=== PATIENT | female | born 1975 | race Caucasian/White ===

== ENCOUNTER 2016-06-14 08:42 | Emergency (ER) | payer BC ==
[2016-06-14] MEDS ORDERED: Ondansetron 4 MG/2 ML SDV IVPUSH ONE (08:59)
[2016-06-14] MEDS ORDERED: Sodium Chloride 0.9% 10 ML Syringe FLUSH PRN (08:59)
[2016-06-14] MEDS ORDERED: HYDROmorphone 2 MG/ML Syringe IVPUSH ONE (08:59)
[2016-06-14] MEDS ORDERED: Sodium Chloride 0.9% 2.5 ML Syringe FLUSH PRN (08:59)
[2016-06-14] MEDS ORDERED: Sodium Chloride 0.9% 1,000 ML IV ONE (08:59)
--- NOTE | 2016-06-14 09:02 | EDM.PDOC ---
ED HPI GENERAL MEDICAL PROBLEM - General Chief Complaint: Flank Pain Stated Complaint: BACK PAIN Time Seen by Provider: 06/14/16 08:58 - History of Present Illness INITIAL COMMENTS - FREE TEXT/NARRATIVE: HISTORY AND PHYSICAL: History of present illness: The patient is a 40-year-old female with a history of chronic right hip and lower back pain, partial hysterectomy, cholecystectomy and palpitations who presents with sudden onset of right flank pain that started about one hour ago. The patient states she was having a completely normal morning and had a completely normal day yesterday when the pain started suddenly at her right flank. Patient has chronic right hip and lower back pain but this is very different as it is much higher and much more intense. She has had no frequency urgency or dysuria no hematuria. She has nausea with the pain the pain is not radiating. She is no right lower abdominal pain or right upper abdominal pain. She's had no recent fever chills cough shortness of breath. Patient took ibuprofen prior to coming here for the pain. She has not actually vomited but she does feel extremely nauseated. The patient admits that she drinks mostly caffeinated products on a regular basis but does try to drink some water. She describes the pain as very deep and intense. Review of systems: As per history of present illness and below otherwise all systems reviewed and negative. Past medical history: As per history of present illness and as reviewed below otherwise noncontributory. Surgical history: As per history of present illness and as reviewed below otherwise noncontributory. Social history: No reported history of drug or alcohol abuse. Family history: As per history of present illness and as reviewed below otherwise noncontributory. Physical exam: General: Well-developed well-nourished female who looks very uncomfortable in the room but vital signs of been reviewed by me HEENT: Atraumatic, normocephalic, negative for conjunctival pallor or scleral icterus, mucous membranes moist, throat clear, neck supple, nontender, trachea midline. Lungs: Clear to auscultation, breath sounds equal bilaterally, chest nontender. Heart: S1S2, regular, negative for clicks, rubs, or JVD. Abdomen: Soft, nondistended, nontender. I am unable to reproduce the pain on palpation and bowel sounds are normoactive Negative for masses or hepatosplenomegaly. Negative for costovertebral tenderness. Pelvis: Stable nontender. Genitourinary: Deferred. Rectal: Deferred. Extremities: Atraumatic, negative for cords or calf pain. Neurovascular unremarkable. Neuro: Awake, alert, oriented. Cranial nerves II through XII unremarkable. Cerebellum unremarkable. Motor and sensory unremarkable throughout. Exam nonfocal. Back: And unable to reproduce the pain on palpation and there are no midline step-offs or defects the thoracic or lumbar spine Diagnostics: CBC CMP UA urine culture CT scan of the abdomen and pelvis Therapeutics: IV fluids Dilaudid Zofran All testing was discussed with the patient and sister at bedside and she is currently without any pain nausea or any issues. She is aware she likely passed the stone already so I will give her any pain medication nausea medication of Flomax for home. Advised followup with urology and reasons to return to the ER. I've also advised cutting back on caffeine use and pushing hydration Impression: Right flank pain, recently passed right ureteral stone stable Definitive disposition and diagnosis as appropriate pending reevaluation and review of above. Right Flank Pain Score (Numeric/FACES): 9 - Related Data Allergies Allergy/AdvReac Type Severity Reaction Status Date / Time codeine Allergy Nausea and Verified 04/03/14 19:39 Vomiting Home Meds: Home Meds Metoprolol Succinate [Toprol XL 50mg] 50 mg PO BEDTIME 10/05/13 [History] Sertraline HCl 100 mg PO DAILY 10/05/13 [History] Past Medical History Cardiovascular History: Reports: Other (see below) Other Cardiovascular History: pvc Social & Family History - Tobacco Use Smoking Status *Q: Never Smoker Second Hand Smoke Exposure: No - Caffeine Use Caffeine Use: Reports: Coffee, Tea - Alcohol Use Days Per Week of Alcohol Use: 0 Number of Drinks Per Day: 0 Total Drinks Per Week: 0 - Recreational Drug Use Recreational Drug Use: No Drug Use in Last 12 Months: No ED ROS GENERAL - Review of Systems Review Of Systems: ROS reveals no pertinent complaints other than HPI. ED EXAM, GENERAL - Physical Exam Exam: See Below (See dictation) Course - Vital Signs Last Recorded V/S: Last Vital Signs Temp 36.3 C 06/14/16 08:52 Pulse 89 06/14/16 08:52 Resp 20 06/14/16 08:52 BP 137/86 06/14/16 08:52 Pulse Ox 98 06/14/16 08:52 - Orders/Labs/Meds Orders: Active Orders 24 hr Category Date Time Status CULTURE URINE [RM] Stat Lab 06/14/16 08:55 Received Sodium Chloride 0.9% [Saline Flush] Med 06/14/16 08:59 Active 10 ml FLUSH ASDIRECTED PRN Sodium Chloride 0.9% [Saline Flush] Med 06/14/16 08:59 Active 2.5 ml FLUSH ASDIRECTED PRN Saline Lock Insert [OM.PC] Stat Oth 06/14/16 08:58 Ordered Medication Orders Sodium Chloride (Saline Flush) 10 ml FLUSH ASDIRECTED PRN PRN Reason: Keep Vein Open Last Admin: 06/14/16 09:06 Dose: 10 ml Sodium Chloride (Saline Flush) 2.5 ml FLUSH ASDIRECTED PRN PRN Reason: Keep Vein Open Last Admin: 06/14/16 09:06 Dose: 2.5 ml Labs: Laboratory Tests 06/14/16 06/14/16 06/14/16 Range/Units 08:55 08:55 08:55 WBC 8.59 (4.0-11.0) K/uL RBC 4.96 (4.30-5.90) M/uL Hgb 14.6 (12.0-16.0) g/dL Hct 43.7 (36.0-46.0) % MCV 88.1 (80.0-98.0) fL MCH 29.4 (27.0-32.0) pg MCHC 33.4 (31.0-37.0) g/dL RDW Std Deviation 41.5 (28.0-62.0) fl RDW Coeff of Cynthia 13 (11.0-15.0) % Plt Count 355 (150-400) K/uL MPV 10.20 (7.40-12.00) fL Neut % (Auto) 46.8 L (48.0-80.0) % Lymph % (Auto) 38.6 (16.0-40.0) % [place] % (Auto) 12.2 (0.0-15.0) % Eos % (Auto) 2.2 (0.0-7.0) % Baso % (Auto) 0.2 (0.0-1.5) % Neut # (Auto) 4.0 (1.4-5.7) K/uL Lymph # (Auto) 3.3 H (0.6-2.4) K/uL [place] # (Auto) 1.1 H (0.0-0.8) K/uL Eos # (Auto) 0.2 (0.0-0.7) K/uL Baso # (Auto) 0.0 (0.0-0.1) K/uL Nucleated RBC % 0.0 /100WBC Nucleated RBCs # 0 K/uL Sodium 140 (136-146) mmol/L Potassium 3.5 (3.5-5.1) mmol/L Chloride 104 (98-110) mmol/L Carbon Dioxide 23 (21-31) mmol/L BUN 16 (6.0-23.0) mg/dL Creatinine 0.8 (0.6-1.5) mg/dL Est Cr Clr Drug Dosing TNP Estimated GFR (MDRD) > 60.0 ml/min Glucose 105 (60-110) mg/dL Calcium 9.5 (8.8-10.8) mg/dL Total Bilirubin 0.6 (0.1-1.5) mg/dL AST 17 (5-40) IU/L ALT 11 (8-54) IU/L Alkaline Phosphatase 75 (40-150) Total Protein 7.7 (6.0-8.0) g/dL Albumin 4.3 (3.5-5.0) g/dL Globulin 3.4 (2.0-3.5) g/dL Albumin/Globulin Ratio 1.3 (1.3-2.8) Urine Color YELLOW Urine Appearance CLEAR Urine pH 7.0 (5.0-8.0) Ur Specific [place] 1.020 (1.001-1.035) Urine Protein NEGATIVE (NEGATIVE) mg/dL Urine Glucose (UA) NEGATIVE (NEGATIVE) mg/dL Urine Ketones NEGATIVE (NEGATIVE) mg/dL Urine Occult Blood MODERATE (NEGATIVE) Urine Nitrite NEGATIVE (NEGATIVE) Urine Bilirubin NEGATIVE (NEGATIVE) Urine Urobilinogen 0.2 (<2.0) EU/dL Ur Leukocyte Esterase NEGATIVE (NEGATIVE) Urine RBC 25-30 (0-2/HPF) Urine WBC 2-4 (0-5/HPF) Ur Epithelial Cells MODERATE (NONE-FEW) Amorphous Sediment FEW (NEGATIVE) Urine Bacteria FEW (NEGATIVE) Meds: Medications Generic Name Dose Route Start Last Admin Trade Name Fresarath PRN Reason Stop Dose Admin Sodium Chloride 10 ml 06/14/16 08:59 06/14/16 09:06 Saline Flush FLUSH 10 ml ASDIRECTED PRN Administration Keep Vein Open Sodium Chloride 2.5 ml 06/14/16 08:59 06/14/16 09:06 Saline Flush FLUSH 2.5 ml ASDIRECTED PRN Administration Keep Vein Open Discontinued Medications Generic Name Dose Route Start Last Admin Trade Name Freq PRN Reason Stop Dose Admin Hydromorphone HCl 1 mg 06/14/16 08:59 06/14/16 09:06 Dilaudid IVPUSH 06/14/16 09:00 1 mg ONETIME ONE Administration Sodium Chloride 1,000 mls @ 999 mls/hr 06/14/16 08:59 06/14/16 09:05 Normal Saline IV 06/14/16 09:59 999 mls/hr STAT ONE Administration Ondansetron HCl 4 mg 06/14/16 08:59 06/14/16 09:06 Zofran IVPUSH 06/14/16 09:00 4 mg ONETIME ONE Administration Departure - Departure Time of Disposition: 10:46 Disposition: Home, Self-Care 01 Condition: good Clinical Impression: Kidney stone on right side Forms: ED Department Discharge Additional Instructions: The following information is given to patients seen in the emergency department who are being discharged to home. This information is to outline your options for follow-up care. We provide all patients seen in our emergency department with a follow-up referral. The need for follow-up, as well as the timing and circumstances, are variable depending upon the specifics of your emergency department visit. If you don't have a primary care physician on staff, we will provide you with a referral. We always advise you to contact your personal physician following an emergency department visit to inform them of the circumstance of the visit and for follow-up with them and/or the need for any referrals to a consulting specialist. The emergency department will also refer you to a specialist when appropriate. This referral assures that you have the opportunity for followup care with a specialist. All of these measure are taken in an effort to provide you with optimal care, which includes your followup. Under all circumstances we always encourage you to contact your private physician who remains a resource for coordinating your care. When calling for followup care, please make the office aware that this follow-up is from your recent emergency room visit. If for any reason you are refused follow-up, please contact the [facility] emergency department at and ask to speak to the emergency department charge nurse. [facility]-Urology [address] [place] [id number] [facility] Primary care- Internal Medicine and Family [address] [id number] Please push hydration and followup with primary care and our urologists as we discussed. Please return to ER as needed and as discussed - My Orders Last 24 Hours: My Active Orders 06/14/16 08:55 CULTURE URINE [RM] Stat 06/14/16 08:58 Saline Lock Insert [OM.PC] Stat 06/14/16 08:59 Sodium Chloride 0.9% [Saline Flush] 10 ml FLUSH ASDIRECTED PRN Sodium Chloride 0.9% [Saline Flush] 2.5 ml FLUSH ASDIRECTED PRN - Assessment/Plan Last 24 Hours: My Active Orders 06/14/16 08:55 CULTURE URINE [RM] Stat 06/14/16 08:58 Saline Lock Insert [OM.PC] Stat 06/14/16 08:59 Sodium Chloride 0.9% [Saline Flush] 10 ml FLUSH ASDIRECTED PRN Sodium Chloride 0.9% [Saline Flush] 2.5 ml FLUSH ASDIRECTED PRN
[2016-06-14 09:29] LABS: CHLORIDE,CL 104 mmol/L (98-110); SODIUM,NA 140 mmol/L (136-146)
--- NOTE | 2016-06-14 09:54 | CT ---
CT of the abdomen and pelvis without contrast. HISTORY: Pain TECHNIQUE: Axial CT images were obtained of the abdomen and pelvis without contrast. Coronal and sag ittal reconstructions obtained. FINDINGS: Mild dependent atelectasis. No pleural effusion. The liver, spleen, adrenal glands, and pancreas appear unremarkable for noncontrast examination. Cho lecystectomy. There is no bulky retroperitoneal lymphadenopathy. No abdominal ascites. Small 2 to 3 mm nonobstructing nephrolithiasis noted bilaterally. The right ureter is minimally prom inent without evidence of an obstructing stone. The large and small bowel are normal in caliber without evidence of obstruction. The appendix appear s normal. There is no bulky pelvic lymphadenopathy. No free fluid. No free air. The urinary bladder appears normal. The visualized osseous structures appear normal. IMPRESSION: 1. Nonobstructing nephrolithiasis bilaterally. 2. Right renal collecting system and ureter is mildly prominent, this may suggest a recently passed stone.
[2016-06-14 10:57] VITALS: BP 129/72
== END 2016-06-14 10:56 | disposition home or self-care (01) ==
LOC: MW.ED 08:42
DX: N20.0 Calculus of kidney (principal)
CPT/HCPCS: 36415; 74176; 80053; 81001; 85025; 87086; 96361; 96374; 99284; J1170; J2405; J7040

== ENCOUNTER 2017-01-07 09:12 | Observation (INO) | payer BC ==
[2017-01-07] MEDS ORDERED: Sodium Chloride 0.9% 1,000 ML IV ONE (09:33)
[2017-01-07] MEDS ORDERED: Ondansetron 4 MG/2 ML SDV IVPUSH ONE ×2 (09:33→10:27)
[2017-01-07] MEDS ORDERED: HYDROmorphone 1 MG/ML Syringe IM ONE ×2 (09:33→12:25)
--- NOTE | 2017-01-07 09:38 | EDM.PDOC ---
<Moises Godoy Z - Last Filed: 01/07/17 09:32> ED HPI GENERAL MEDICAL PROBLEM - General Chief Complaint: Genitourinary Problem Stated Complaint: right lower back pain Time Seen by Provider: 01/07/17 09:30 - Related Data Allergies Allergy/AdvReac Type Severity Reaction Status Date / Time codeine Allergy Nausea and Verified 01/07/17 09:24 Vomiting Home Meds: Home Meds Metoprolol Succinate [Toprol XL 50mg] 50 mg PO BEDTIME 10/05/13 [History] Sertraline HCl 100 mg PO DAILY 10/05/13 [History] Past Medical History Cardiovascular History: Reports: Hypertension Other Cardiovascular History: pvc Psychiatric History: Reports: Depression - Infectious Disease History Infectious Disease History: Reports: Chicken Pox - Past Surgical History Female Surgical History: Reports: Hysterectomy Social & Family History - Tobacco Use Smoking Status *Q: Never Smoker Second Hand Smoke Exposure: No - Caffeine Use Caffeine Use: Reports: Coffee - Alcohol Use Days Per Week of Alcohol Use: 0 Number of Drinks Per Day: 0 Total Drinks Per Week: 0 - Recreational Drug Use Recreational Drug Use: No Drug Use in Last 12 Months: No Course - Vital Signs Last Recorded V/S: Last Vital Signs Temp 36.3 C 01/07/17 09:22 Pulse 75 01/07/17 09:22 Resp 22 H 01/07/17 09:22 BP 138/62 01/07/17 09:22 Pulse Ox 97 01/07/17 09:22 - Orders/Labs/Meds Orders: Active Orders 24 hr Category Date Time Status CMP [COMPREHENSIVE METABOLIC PN,CMP] [CHEM] Stat Lab 01/07/17 09:30 Received UA W/MICROSCOPIC [URIN] Stat Lab 01/07/17 10:22 Ordered Labs: Laboratory Tests 01/07/17 Range/Units 09:30 WBC 11.22 H (4.0-11.0) K/uL RBC 5.01 (4.30-5.90) M/uL Hgb 15.1 (12.0-16.0) g/dL Hct 44.7 (36.0-46.0) % MCV 89.2 (80.0-98.0) fL MCH 30.1 (27.0-32.0) pg MCHC 33.8 (31.0-37.0) g/dL RDW Std Deviation 40.6 (28.0-62.0) fl RDW Coeff of Cynthia 13 (11.0-15.0) % Plt Count 394 (150-400) K/uL MPV 11.30 (7.40-12.00) fL Neut % (Auto) 56.9 (48.0-80.0) % Lymph % (Auto) 32.5 (16.0-40.0) % [place] % (Auto) 9.1 (0.0-15.0) % Eos % (Auto) 1.2 (0.0-7.0) % Baso % (Auto) 0.3 (0.0-1.5) % Neut # (Auto) 6.4 H (1.4-5.7) K/uL Lymph # (Auto) 3.7 H (0.6-2.4) K/uL [place] # (Auto) 1.0 H (0.0-0.8) K/uL Eos # (Auto) 0.1 (0.0-0.7) K/uL Baso # (Auto) 0.0 (0.0-0.1) K/uL Nucleated RBC % 0.0 /100WBC Nucleated RBCs # 0 K/uL Meds: Medications Discontinued Medications Generic Name Dose Route Start Last Admin Trade Name Ronnyq PRN Reason Stop Dose Admin Hydromorphone HCl 1 mg 01/07/17 09:33 01/07/17 09:44 Dilaudid IM 01/07/17 09:34 1 mg ONETIME ONE Administration Hydromorphone HCl 1 mg 01/07/17 10:26 01/07/17 10:31 Dilaudid IVPUSH 01/07/17 10:27 1 mg ONETIME ONE Administration Sodium Chloride 1,000 mls @ 999 mls/hr 01/07/17 09:33 01/07/17 09:46 Normal Saline IV 01/07/17 10:33 999 mls/hr STAT ONE Administration Ondansetron HCl 4 mg 01/07/17 09:33 01/07/17 09:44 Zofran IVPUSH 01/07/17 09:34 4 mg ONETIME ONE Administration Ondansetron HCl 4 mg 01/07/17 10:27 01/07/17 10:31 Zofran IVPUSH 01/07/17 10:28 4 mg ONETIME ONE Administration Departure - Departure Disposition: Home, Self-Care 01 Clinical Impression: Ureteral stone - Discharge Information Referrals: Ashly Hurtado NP [Primary Care Provider] - Forms: ED Department Discharge Additional Instructions: Medication as prescribed Return if symptoms persist or worsen or fever nausea vomiting chills sweats despite treatment Follow-up with urology 2 weeks, call a number below for appropriate follow-up [facility] - Urology [address] [place] [id number] The following information is given to patients seen in the emergency department who are being discharged to home. This information is to outline your options for follow-up care. We provide all patients seen in our emergency department with a follow-up referral. The need for follow-up, as well as the timing and circumstances, are variable depending upon the specifics of your emergency department visit. If you don't have a primary care physician on staff, we will provide you with a referral. We always advise you to contact your personal physician following an emergency department visit to inform them of the circumstance of the visit and for follow-up with them and/or the need for any referrals to a consulting specialist. The emergency department will also refer you to a specialist when appropriate. This referral assures that you have the opportunity for follow-up care with a specialist. All of these measure are taken in an effort to provide you with optimal care, which includes your follow-up. Under all circumstances we always encourage you to contact your private physician who remains a resource for coordinating your care. When calling for follow-up care, please make the office aware that this follow-up is from your recent emergency room visit. If for any reason you are refused follow-up, please contact the [facility] emergency department at and asked to speak to the emergency department charge nurse. <Singh Estrada - Last Filed: 01/07/17 10:59> ED HPI GENERAL MEDICAL PROBLEM - General Source of Information: Reports: Patient - History of Present Illness INITIAL COMMENTS - FREE TEXT/NARRATIVE: HISTORY AND PHYSICAL: History of present illness: Flank pain seen since diagnosis early this. This is on the left on the right patient presents with right flank pain rates 5 out of 10 nonradiating no fever vomiting chills sweats complains of mild nausea Review of systems: As per history of present illness and below otherwise all systems reviewed and negative. Past medical history: As per history of present illness and as reviewed below otherwise noncontributory. Surgical history: As per history of present illness and as reviewed below otherwise noncontributory. Social history: No reported history of drug or alcohol abuse. Family history: As per history of present illness and as reviewed below otherwise noncontributory. Physical exam: HEENT: Atraumatic, normocephalic, pupils reactive, negative for conjunctival pallor or scleral icterus, mucous membranes moist, throat clear, neck supple, nontender, trachea midline. Lungs: Clear to auscultation, breath sounds equal bilaterally, chest nontender. Heart: S1S2, regular, negative for clicks, rubs, or JVD. Abdomen: Soft, nondistended, nontender. Negative for masses or hepatosplenomegaly. Negative for costovertebral tenderness. Pelvis: Stable nontender. Genitourinary: Deferred. Rectal: Deferred. Extremities: Atraumatic, negative for cords or calf pain. Neurovascular unremarkable. Neuro: Awake, alert, oriented. Cranial nerves II through XII unremarkable. Cerebellum unremarkable. Motor and sensory unremarkable throughout. Exam nonfocal. Diagnostics: []Lab as below CT abdomen pelvis no contrast Therapeutics: []1 L normal saline bolus Zofran 8 mg IV total Dilaudid 1 mg 2 for a total of 2 mg achieve pain control Impression: []3 mm obstructing stone right ureter Definitive disposition and diagnosis as appropriate pending reevaluation and review of above. ED ROS GENERAL - Review of Systems Review Of Systems: ROS reveals no pertinent complaints other than HPI. ED EXAM, GI/ABD - Physical Exam Exam: See Below Departure - Departure Time of Disposition: 10:58 Condition: Good
[2017-01-07] MEDS ORDERED: HYDROmorphone 2 MG/ML Syringe IVPUSH ONE ×2 (10:26→13:08)
--- NOTE | 2017-01-07 10:27 | CT ---
CT of the abdomen and pelvis without contrast. HISTORY: Pain TECHNIQUE: Axial CT images were obtained of the abdomen and pelvis without contrast. Coronal and sagi ttal reconstructions obtained. FINDINGS: The lung bases are clear, no pleural effusion. The liver, spleen, adrenal glands, and pancreas appear unremarkable for noncontrast examination. Chol ecystectomy. There is no bulky retroperitoneal lymphadenopathy. No abdominal ascites. There is a 3 mm obstructing stone within the distal right ureter mild proximal hydronephrosis. Small nonobstructing left nephrolithiasis noted. The large and small bowel are normal in caliber without evidence of obstruction. The appendix appears normal. There is no bulky pelvic lymphadenopathy. No free fluid. No free air. The urinary bladder ap pears normal. There is a 2.5 cm left ovarian cyst. The visualized osseous structures appear normal. IMPRESSION: 1. There is a 3 mm obstructing stone within the distal right ureter mild proximal hydronephrosis. 2. Nonobstructing renal nephrolithiasis bilaterally. 3. Cholecystectomy. 4. Small 2.5 cm left ovarian cyst.
[2017-01-07 10:57] LABS: CHLORIDE,CL 105 mmol/L (98-110); SODIUM,NA 138 mmol/L (136-146)
[2017-01-07] MEDS ORDERED: Ketorolac 30 MG/ML SDV IVPUSH ONE (11:07)
[2017-01-07] MEDS ORDERED: Tamsulosin 0.4 MG Cap.ER PO ONE (11:07)
[2017-01-07] MEDS ORDERED: methylPREDNISolone Sodium Succinate 125 MG/2 ML SDV IVPUSH ONE (11:07)
[2017-01-07] MEDS ORDERED: Promethazine 25 MG/ML SDV IM ONE (11:07)
[2017-01-07] MEDS ORDERED: Sodium Chloride 0.9% 1,000 ML IV SCH (12:30)
--- NOTE | 2017-01-07 12:53 | PCM.HP ---
<Najma Sahu M - Last Filed: 01/07/17 14:47> H&P History of Present Illness - General Date of Service: 01/07/17 Admit Problem/Dx: Renal stone Source of Information: Patient History Limitations: Reports: No Limitations - History of Present Illness Initial Comments - Free Text/Narative: This 41 year old female with pmh of renal stone in May, and PVCs presented to the ED today with complaints of sudden onset of R flank pain. She reports this pain as sharp shooting and has now traveled slightly and wrapping around to the front mid abdomen. She denies burning with urination, hematuria, or frequency. In May when she was diagnosed with renal stone it passed in the ED and she was sent home with no medications. She denies drinking excessive amounts of pop , does drink red wine on occasion but not daily. She reports not being good with drinking her water recently. She denies fevers at home or malaise. She is having some nausea and vomiting from the pain. In the ED leukocytosis 11,220, BUN 24, Cr 0.7, ua was negative, no hematuria, 0- 1 WBC, neg nitrite, neg leukocyte esterase and rare bacteria. Abd/pelvis CT revealed 3 mm obstructing stone within the distal R ureter with mild proximal hydronephrosis, small non-obstructing left nephrolithiasis noted. She will be admitted observation for renal stone and pain management. Right Back Pain Score (Numeric/FACES): 9 - Related Data Allergies/Adverse Reactions: Allergies Allergy/AdvReac Type Severity Reaction Status Date / Time codeine Allergy Nausea and Verified 01/07/17 09:24 Vomiting Home Medications: Home Meds Metoprolol Succinate [Toprol XL 50mg] 50 mg PO BEDTIME 10/05/13 [History] Sertraline HCl 100 mg PO DAILY 10/05/13 [History] Past Medical History Cardiovascular History: Reports: Arrhythmia (PVCs, controlled on Metoprolol) Respiratory History: Reports: None. Denies: Asthma, COPD Gastrointestinal History: Reports: None. Denies: GERD Genitourinary History: Reports: Renal Calculus Psychiatric History: Reports: Depression Endocrine/Metabolic History: Denies: Diabetes, Type II, Hypothyroidism - Infectious Disease History Infectious Disease History: Reports: Chicken Pox - Past Surgical History Female Surgical History: Reports: Hysterectomy Social & Family History - Tobacco Use Smoking Status *Q: Never Smoker Second Hand Smoke Exposure: No - Caffeine Use Caffeine Use: Reports: Coffee - Alcohol Use Days Per Week of Alcohol Use: 0 Number of Drinks Per Day: 0 Total Drinks Per Week: 0 - Recreational Drug Use Recreational Drug Use: No Drug Use in Last 12 Months: No - Living Situation & Occupation Occupation: Employed H&P Review of Systems - Review of Systems: Review Of Systems: See Below General: Reports: No Symptoms. Denies: Fever, Chills, Malaise HEENT: Reports: No Symptoms. Denies: Headaches, Sinus Congestion, Vertigo Pulmonary: Reports: No Symptoms. Denies: Shortness of Breath, Cough, Sputum Cardiovascular: Reports: No Symptoms. Denies: Chest Pain, Palpitations, Edema Gastrointestinal: Reports: Abdominal Pain (R flank and mid abdomen.) Genitourinary: Reports: Flank Pain (R). Denies: Dysuria, Frequency, Hematuria, Retention, Discharge Musculoskeletal: Reports: No Symptoms Skin: Reports: No Symptoms Neurological: Reports: No Symptoms Immunologic: Reports: No Symptoms Exam - Exam Exam: See Below - Vital Signs Vital Signs: Last Vital Signs Temp 97.4 F 01/07/17 09:22 Pulse 75 01/07/17 09:22 Resp 22 H 01/07/17 09:22 BP 138/62 01/07/17 09:22 Pulse Ox 97 01/07/17 09:22 Weight: 79.379 kg - Exam General: Alert, Oriented, Cooperative HEENT: Conjunctiva Clear, Hearing Intact, Mucosa Moist & [place] Lungs: Clear to Auscultation, Normal Respiratory Effort Cardiovascular: Regular Rate, Regular Rhythm GI/Abdominal Exam: Normal Bowel Sounds, Soft, No Organomegaly, No Distention, No Abnormal Bruit, No Mass, Pelvis Stable, Tender (R mid abdomen) Back Exam: Normal Inspection, Full Range of Motion, CVA Tenderness (R). No: CVA Tenderness (L) Neuro Extensive - Mental Status: Alert, Oriented x3, Normal Mood/Affect Psychiatric: Anxious (tearful, in extreme pain ro R flank and mid abdomen. ) - Patient Data Result Diagrams: 01/07/17 09:30 01/07/17 09:30 *Q Meaningful Use (ADM) - VTE *Q VTE Criteria *Q: - Stroke *Q Stroke Criteria *Q: - AMI *Q AMI Criteria *Q: - Problem List (1) Ureteral stone SNOMED Code(s): 94558551 ICD Code: N20.1 - CALCULUS OF URETER Status: Acute Current Visit: Yes (2) Intractable pain SNOMED Code(s): 07762438 ICD Code: R52 - PAIN, UNSPECIFIED Status: Acute Current Visit: Yes (3) PVC (premature ventricular contraction) SNOMED Code(s): 46675792 ICD Code: I49.3 - VENTRICULAR PREMATURE DEPOLARIZATION Status: Chronic Current Visit: Yes (4) Depression SNOMED Code(s): 21038354 ICD Code: F32.9 - MAJOR DEPRESSIVE DISORDER, SINGLE EPISODE, UNSPECIFIED Status: Chronic Current Visit: Yes Problem List Initiated/Reviewed/Updated: Yes Orders Last 24hrs: Medication Orders Sodium Chloride (Normal Saline) 1,000 mls @ 125 mls/hr IV STAT MARK Assessment/Plan Comment:: This 41 year old female admitted for R ureteral stone and intractable pain 1. Ureteral stone and pain: Will start Dilaudid DIRECTOR VISUAL now. I will give 1 mg bolus and then Set DIRECTOR VISUAL 0.1 mg every 6 minutes, max 1 mg per hour, 4 hr max 4 mg. Nursing to strain urine, continue IVFs, NS 125. Zofran PRN nausea. Will monitor. I did speak with Dr. Valdez at request of patient. he recommended pain control and if she does not pass in 1 week to have her come see him. But he feels she will pass this. Once nausea passes may consider trying PO pain medications. 2. PVCs: Well controlled with Metoprolol, will continue this. VTE prophylaxis: SCDs <Chema Griffin - Last Filed: 01/07/17 21:32> Exam - Vital Signs Vital Signs: Last Vital Signs Temp 36.5 C 01/07/17 20:00 Pulse 78 01/07/17 20:35 Resp 16 01/07/17 20:00 BP 107/59 L 01/07/17 20:35 Pulse Ox 98 01/07/17 20:00 - Patient Data Result Diagrams: 01/07/17 09:30 01/07/17 09:30 *Q Meaningful Use (ADM) - VTE *Q VTE Criteria *Q: - Stroke *Q Stroke Criteria *Q: - AMI *Q AMI Criteria *Q: Orders Last 24hrs: Active Orders 24 hr Category Date Time Status Antiembolic Devices [RC] PER UNIT ROUTINE Care 01/07/17 14:25 Active Intake and Output [RC] Q12HR Care 01/07/17 14:24 Active Oxygen Therapy [RC] PRN Care 01/07/17 14:24 Active Strain Urine [RC] ASDIRECTED Care 01/07/17 14:46 Active Up ad Emerald [RC] ASDIRECTED Care 01/07/17 14:23 Active Vital Signs [RC] Q4H Care 01/07/17 14:24 Active Regular Diet [DIET] Diet 01/07/17 Dinner Active BASIC METABOLIC PANEL,BMP [CHEM] AM Lab 01/08/17 05:11 Ordered CBC WITH AUTO DIFF [HEME] AM Lab 01/08/17 05:11 Ordered HYDROmorphone [Dilaudid] Med 01/07/17 18:06 Active 0.5 mg IVPUSH Q4H PRN HYDROmorphone/Normal Saline [Dilaudid DIRECTOR VISUAL 6 MG in NS 30 Med 01/07/17 14:45 Active ML] 6 mg IV ASDIRECTED Ketorolac [Toradol] Med 01/07/17 18:44 Active 30 mg IVPUSH Q6H PRN Metoprolol Succinate [Toprol XL] Med 01/07/17 21:00 Active 50 mg PO BEDTIME Ondansetron [Zofran] Med 01/07/17 14:23 Active 4 mg IVPUSH Q4H PRN Sertraline [Zoloft] Med 01/08/17 09:00 Active 100 mg PO DAILY Sodium Chloride 0.9% [Normal Saline] 1,000 ml Med 01/07/17 14:30 Active IV ASDIRECTED Sequential Compression Device [OM.PC] Per Unit Routine Oth 01/07/17 14:24 Ordered Resuscitation Status Routine Resus Stat 01/07/17 14:23 Ordered Medication Orders Hydromorphone HCl (Dilaudid Business Development Coordinator 6 Mg In Ns 30 Ml) 6 mg IV ASDIRECTED MARK PRN Reason: Protocol Last Admin: 01/07/17 14:47 Dose: 6 mg Hydromorphone HCl (Dilaudid) 0.5 mg IVPUSH Q4H PRN PRN Reason: Pain Sodium Chloride (Normal Saline) 1,000 mls @ 125 mls/hr IV STAT MARK Last Admin: 01/07/17 13:42 Dose: 125 mls/hr Sodium Chloride (Normal Saline) 1,000 mls @ 125 mls/hr IV ASDIRECTED MARK Ketorolac Tromethamine (Toradol) 30 mg IVPUSH Q6H PRN PRN Reason: Pain Stop: 01/08/17 12:31 Last Admin: 01/07/17 20:36 Dose: 30 mg Metoprolol Succinate (Toprol Xl) 50 mg PO BEDTIME MARK Last Admin: 01/07/17 20:35 Dose: 50 mg Ondansetron HCl (Zofran) 4 mg IVPUSH Q4H PRN PRN Reason: Nausea Last Admin: 01/07/17 16:59 Dose: 4 mg Sertraline HCl (Zoloft) 100 mg PO DAILY MARK - Free Text/Narrative Note: Dr. Griffin writes: I have examined this patient and confirm that she is indeed experiencing renal colic. I agree with Marlin VILLASENOR's examination, assessments, and note.
[2017-01-07] MEDS: HYDROmorphone/Normal Saline 6 MG/30 ML PCA Vial IV SCH (14:47)
[2017-01-07] MEDS ORDERED: FLU Vacc QS 2017-18 (6mos UP)/PF 60 MCG/0.5 ML Syringe IM ONE (15:45)
[2017-01-07] MEDS: Ondansetron 4 MG/2 ML SDV IVPUSH PRN ×2 (16:59→23:38)
[2017-01-07] MEDS ORDERED: HYDROmorphone 2 MG/ML Syringe IVPUSH PRN (18:06)
[2017-01-07] MEDS ORDERED: Ketorolac 30 MG/ML SDV IVPUSH SCH (18:30)
[2017-01-07] MEDS: Ketorolac 30 MG/ML SDV IVPUSH PRN (20:36)
[2017-01-07] MEDS ORDERED: Metoprolol Succinate 50 MG Tab.ER PO SCH (21:00)
[2017-01-08] MEDS: Sodium Chloride 0.9% 1,000 ML IV SCH ×2 (00:12→07:31)
[2017-01-08] MEDS: HYDROmorphone/Normal Saline 6 MG/30 ML PCA Vial IV SCH (00:44)
[2017-01-08 06:13] LABS: CHLORIDE,CL 105 mmol/L (98-110); SODIUM,NA 140 mmol/L (136-146)
[2017-01-08] MEDS ORDERED: Sertraline 100 MG Tab PO SCH (09:00)
[2017-01-08] MEDS ORDERED: HYDROmorphone 2 MG Tab PO PRN (09:03)
[2017-01-08] MEDS: Tamsulosin 0.4 MG Cap.ER PO SCH ×2 (09:30→10:31)
[2017-01-08] MEDS: Ondansetron 4 MG/2 ML SDV IVPUSH PRN (10:14)
[2017-01-08] MEDS: Ketorolac 30 MG/ML SDV IVPUSH PRN (11:07)
--- NOTE | 2017-01-08 14:17 | PCM.DCSUM1 ---
<Najma Sahu M - Last Filed: 01/08/17 14:11> Discharge Summary - Hospital Course Brief History: This 41 year old female with pmh of renal stone in May, and PVCs presented to the ED today with complaints of sudden onset of R flank pain. She reports this pain as sharp shooting and has now traveled slightly and wrapping around to the front mid abdomen. She denies burning with urination, hematuria, or frequency. In May when she was diagnosed with renal stone it passed in the ED and she was sent home with no medications. She denies drinking excessive amounts of pop, does drink red wine on occasion but not daily. She reports not being good with drinking her water recently. She denies fevers at home or malaise. She is having some nausea and vomiting from the pain. In the ED leukocytosis 11,220, BUN 24, Cr 0.7, ua was negative, no hematuria, 0-1 WBC, neg nitrite, neg leukocyte esterase and rare bacteria. Abd/pelvis CT revealed 3 mm obstructing stone within the distal R ureter with mild proximal hydronephrosis, small non-obstructing left nephrolithiasis noted. She will be admitted observation for renal stone and pain management. - Discharge Data Discharge Date: 01/08/17 Discharge Disposition: Home, Self-Care 01 Condition: Good - Discharge Diagnosis/Problem(s) (1) Ureteral stone SNOMED Code(s): 33920368 ICD Code: N20.1 - CALCULUS OF URETER Status: Acute (2) Intractable pain SNOMED Code(s): 67924266 ICD Code: R52 - PAIN, UNSPECIFIED Status: Acute (3) PVC (premature ventricular contraction) SNOMED Code(s): 29060663 ICD Code: I49.3 - VENTRICULAR PREMATURE DEPOLARIZATION Status: Chronic (4) Depression SNOMED Code(s): 61795139 ICD Code: F32.9 - MAJOR DEPRESSIVE DISORDER, SINGLE EPISODE, UNSPECIFIED Status: Chronic - Patient Instructions Diet: Regular Diet as Tolerated, Drink 8-10+ Glasses/Day Activity: As Tolerated Driving: Do Not Drive (no driving while on narcotics) Showering/Bathing: July Shower - Discharge Plan Prescriptions/Med Rec: HYDROmorphone [Dilaudid] 2 mg PO Q4H PRN #15 tablet PRN Reason: Pain Ibuprofen 600 mg PO Q6H PRN #1 tablet PRN Reason: Pain Ondansetron [Zofran ODT] 4 mg PO Q4H PRN #10 tab.dis PRN Reason: Nausea Tamsulosin [Flomax] 0.4 mg PO PCBREAKFAST #5 cap.er Home Medications: Home Meds Metoprolol Succinate [Toprol XL 50mg] 50 mg PO BEDTIME 10/05/13 [History] Sertraline HCl 100 mg PO DAILY 10/05/13 [History] HYDROmorphone [Dilaudid] 2 mg PO Q4H PRN #15 tablet 01/08/17 [Rx] Ibuprofen 600 mg PO Q6H PRN #1 tablet 01/08/17 [Rx] Ondansetron [Zofran ODT] 4 mg PO Q4H PRN #10 tab.dis 01/08/17 [Rx] Tamsulosin [Flomax] 0.4 mg PO PCBREAKFAST #5 cap.er 01/08/17 [Rx] Patient Handouts: Ondansetron tablets, Ibuprofen tablets and capsules, Kidney Stones, [id number], Tamsulosin capsules, Hydromorphone tablets, Dietary Guidelines to Help Prevent Kidney Stones Referrals: Ashly Hurtado NP [Primary Care Provider] - 01/11/17 9:45 am Flakita Valdez MD [Physician] - 01/16/17 12:45 pm - Discharge Summary/Plan Comment DC Time >30 min.: No Discharge Summary/Plan Comment: DISCHARGE PLAN: [facility] and treated for intractable pain related to 3 mm distal ureter stone. She was given Dilaudid CAFE LEAD. Today she is feeling better and pain is controlled with Dilaudid PO and Toradol. She will be sent home today with Dilaudid 2 mg PO every 4 hours PRN Pain #20 tabs, no RF., Zofran, Flomax x 5 days and Ibuprofen. She is to follow up in clinic or ED if pain continues. If pain persists and she hasn't passed stone in 1 week, an appointment with Dr Valdez has been arranged, as well as follow up with PCP, Esthela Hurtado NP. She has good pain control and she is tolerating diet. Encouraged to drink plenty of water. - General Info Date of Service: 01/08/17 Admission Dx/Problem (Free Text: Renal stone Subjective Update: Doing better today, pain controlled and eager for discharge. No chest pain, SOB or palpitations. Tenderness to R flank. Functional Status: Reports: Pain Controlled, Tolerating Diet, Ambulating, Urinating - Review of Systems General: Reports: No Symptoms. Denies: Fever HEENT: Reports: No Symptoms. Denies: Ear Pain, Headaches, Sinus Congestion, Visual Changes Pulmonary: Reports: No Symptoms. Denies: Shortness of Breath Cardiovascular: Reports: No Symptoms. Denies: Chest Pain Gastrointestinal: Reports: Abdominal Pain (R mid and R flank, improved. ) Genitourinary: Reports: Flank Pain (R). Denies: Dysuria, Frequency, Burning, Hematuria Neurological: Reports: No Symptoms Psychiatric: Reports: No Symptoms - Patient Data Vitals - Most Recent: Last Vital Signs Temp 98.1 F 01/08/17 11:57 Pulse 68 01/08/17 08:00 Resp 14 01/08/17 11:57 BP 95/60 01/08/17 11:57 Pulse Ox 96 01/08/17 11:57 Weight - Most Recent: 79.379 kg I&O - Last 24 hours: Intake & Output 01/07/17 01/08/17 01/08/17 22:59 06:59 14:59 Intake Total 367 1855 Output Total 100 1000 Balance 267 855 Lab Results - Last 24 hrs: Laboratory Results - last 24 hr 01/08/17 01/08/17 Range/Units 05:06 05:06 WBC 15.85 H (4.0-11.0) K/uL RBC 4.39 (4.30-5.90) M/uL Hgb 13.2 (12.0-16.0) g/dL Hct 39.4 (36.0-46.0) % MCV 89.7 (80.0-98.0) fL MCH 30.1 (27.0-32.0) pg MCHC 33.5 (31.0-37.0) g/dL RDW Std Deviation 40.9 (28.0-62.0) fl RDW Coeff of Cynthia 13 (11.0-15.0) % Plt Count 334 (150-400) K/uL MPV 10.90 (7.40-12.00) fL Neut % (Auto) 77.7 (48.0-80.0) % Lymph % (Auto) 13.2 L (16.0-40.0) % Dougherty % (Auto) 8.9 (0.0-15.0) % Eos % (Auto) 0.1 (0.0-7.0) % Baso % (Auto) 0.1 (0.0-1.5) % Neut # (Auto) 12.3 H (1.4-5.7) K/uL Lymph # (Auto) 2.1 (0.6-2.4) K/uL Dougherty # (Auto) 1.4 H (0.0-0.8) K/uL Eos # (Auto) 0.0 (0.0-0.7) K/uL Baso # (Auto) 0.0 (0.0-0.1) K/uL Nucleated RBC % 0.0 /100WBC Nucleated RBCs # 0 K/uL Sodium 140 (136-146) mmol/L Potassium 4.0 (3.5-5.1) mmol/L Chloride 105 (98-110) mmol/L Carbon Dioxide 25 (21-31) mmol/L BUN 16 (6.0-23.0) mg/dL Creatinine 1.0 (0.6-1.5) mg/dL Est Cr Clr Drug Dosing 67.29 mL/min Estimated GFR (MDRD) > 60.0 ml/min Glucose 103 (60-110) mg/dL Calcium 9.2 (8.8-10.8) mg/dL Med Orders - Current: Current Medications Hydromorphone HCl (Dilaudid Employee Relation Manager 6 Mg In Ns 30 Ml) 6 mg IV ASDIRECTED MARK PRN Reason: Protocol Last Admin: 01/08/17 00:44 Dose: 6 mg Hydromorphone HCl (Dilaudid) 0.5 mg IVPUSH Q4H PRN PRN Reason: Pain Last Admin: 01/07/17 23:42 Dose: 0.5 mg Hydromorphone HCl (Dilaudid) 2 mg PO Q4H PRN PRN Reason: Pain Last Admin: 01/08/17 10:29 Dose: 2 mg Sodium Chloride (Normal Saline) 1,000 mls @ 125 mls/hr IV ASDIRECTED MARK Last Admin: 01/08/17 07:31 Dose: 125 mls/hr Metoprolol Succinate (Toprol Xl) 50 mg PO BEDTIME [facility] Last Admin: 01/07/17 20:35 Dose: 50 mg Ondansetron HCl (Zofran) 4 mg IVPUSH Q4H PRN PRN Reason: Nausea Last Admin: 01/08/17 10:14 Dose: 4 mg Sertraline HCl (Zoloft) 100 mg PO DAILY [facility] Last Admin: 01/08/17 10:18 Dose: Not Given Tamsulosin HCl (Flomax) 0.4 mg PO PCBREAKFAST [facility] Last Admin: 01/08/17 10:31 Dose: Not Given Discontinued Medications Hydromorphone HCl (Dilaudid) 1 mg IM ONETIME ONE Stop: 01/07/17 09:34 Last Admin: 01/07/17 09:44 Dose: 1 mg Hydromorphone HCl (Dilaudid) 1 mg IVPUSH ONETIME ONE Stop: 01/07/17 10:27 Last Admin: 01/07/17 10:31 Dose: 1 mg Hydromorphone HCl (Dilaudid) 0.5 mg IVPUSH ONETIME ONE Stop: 01/07/17 13:09 Last Admin: 01/07/17 13:40 Dose: 0.5 mg Sodium Chloride (Normal Saline) 1,000 mls @ 999 mls/hr IV STAT ONE Stop: 01/07/17 10:33 Last Admin: 01/07/17 09:46 Dose: 999 mls/hr Sodium Chloride (Normal Saline) 1,000 mls @ 125 mls/hr IV STAT MARK Stop: 01/08/17 00:01 Last Admin: 01/07/17 13:42 Dose: 125 mls/hr Influenza Virus Vaccine (Flulaval Quad [id number]) 60 mcg IM .ONCE ONE Stop: 01/07/17 15:46 Ketorolac Tromethamine (Toradol) 30 mg IVPUSH ONETIME ONE Stop: 01/07/17 11:08 Last Admin: 01/07/17 11:47 Dose: 30 mg Ketorolac Tromethamine (Toradol) 30 mg IVPUSH Q6H MARK Stop: 01/08/17 12:31 Last Admin: 01/07/17 19:35 Dose: Not Given Ketorolac Tromethamine (Toradol) 30 mg IVPUSH Q6H PRN PRN Reason: Pain Stop: 01/08/17 12:31 Last Admin: 01/08/17 11:07 Dose: 30 mg Methylprednisolone Sodium Succinate (Solu-Medrol) 125 mg IVPUSH ONETIME ONE Stop: 01/07/17 11:08 Last Admin: 01/07/17 11:48 Dose: 125 mg Ondansetron HCl (Zofran) 4 mg IVPUSH ONETIME ONE Stop: 01/07/17 09:34 Last Admin: 01/07/17 09:44 Dose: 4 mg Ondansetron HCl (Zofran) 4 mg IVPUSH ONETIME ONE Stop: 01/07/17 10:28 Last Admin: 01/07/17 10:31 Dose: 4 mg Promethazine HCl (Phenergan) 25 mg IM ONETIME ONE Stop: 01/07/17 11:08 Last Admin: 01/07/17 11:47 Dose: 25 mg Tamsulosin HCl (Flomax) 0.4 mg PO ONETIME ONE Stop: 01/07/17 11:08 Last Admin: 01/07/17 12:01 Dose: 0.4 mg - Exam General: Reports: Alert, Oriented, Cooperative, No Acute Distress Lungs: Reports: Clear to Auscultation, Normal Respiratory Effort Cardiovascular: Reports: Regular Rate, Regular Rhythm GI/Abdominal Exam: Normal Bowel Sounds, Soft, No Organomegaly, No Distention, No Abnormal Bruit, No Mass, Pelvis Stable, Tender (improved, R mid abdomen/flank ) Back Exam: Reports: CVA Tenderness (R) (improved) Neurological: Reports: No New Focal Deficit Psy/Mental Status: Reports: Alert, Normal Affect, Normal Mood *Q Meaningful Use (DIS) - VTE *Q VTE Criteria *Q: - Stroke *Q Stroke Criteria *Q: - AMI *Q AMI Criteria *Q: <Chema Griffin - Last Filed: 01/08/17 15:50> - Patient Data Vitals - Most Recent: Last Vital Signs Temp 36.7 C 01/08/17 11:57 Pulse 68 01/08/17 08:00 Resp 14 01/08/17 11:57 BP 95/60 01/08/17 11:57 Pulse Ox 96 01/08/17 11:57 I&O - Last 24 hours: Intake & Output 01/08/17 01/08/17 01/08/17 06:59 14:59 22:59 Intake Total 1855 1236 Output Total 1000 1900 Balance 855 -664 Lab Results - Last 24 hrs: Laboratory Results - last 24 hr 01/08/17 01/08/17 Range/Units 05:06 05:06 WBC 15.85 H (4.0-11.0) K/uL RBC 4.39 (4.30-5.90) M/uL Hgb 13.2 (12.0-16.0) g/dL Hct 39.4 (36.0-46.0) % MCV 89.7 (80.0-98.0) fL MCH 30.1 (27.0-32.0) pg MCHC 33.5 (31.0-37.0) g/dL RDW Std Deviation 40.9 (28.0-62.0) fl RDW Coeff of Cynthia 13 (11.0-15.0) % Plt Count 334 (150-400) K/uL MPV 10.90 (7.40-12.00) fL Neut % (Auto) 77.7 (48.0-80.0) % Lymph % (Auto) 13.2 L (16.0-40.0) % Dougherty % (Auto) 8.9 (0.0-15.0) % Eos % (Auto) 0.1 (0.0-7.0) % Baso % (Auto) 0.1 (0.0-1.5) % Neut # (Auto) 12.3 H (1.4-5.7) K/uL Lymph # (Auto) 2.1 (0.6-2.4) K/uL Dougherty # (Auto) 1.4 H (0.0-0.8) K/uL Eos # (Auto) 0.0 (0.0-0.7) K/uL Baso # (Auto) 0.0 (0.0-0.1) K/uL Nucleated RBC % 0.0 /100WBC Nucleated RBCs # 0 K/uL Sodium 140 (136-146) mmol/L Potassium 4.0 (3.5-5.1) mmol/L Chloride 105 (98-110) mmol/L Carbon Dioxide 25 (21-31) mmol/L BUN 16 (6.0-23.0) mg/dL Creatinine 1.0 (0.6-1.5) mg/dL Est Cr Clr Drug Dosing 67.29 mL/min Estimated GFR (MDRD) > 60.0 ml/min Glucose 103 (60-110) mg/dL Calcium 9.2 (8.8-10.8) mg/dL Med Orders - Current: Current Medications Discontinued Medications Hydromorphone HCl (Dilaudid) 1 mg IM ONETIME ONE Stop: 01/07/17 09:34 Last Admin: 01/07/17 09:44 Dose: 1 mg Hydromorphone HCl (Dilaudid) 1 mg IVPUSH ONETIME ONE Stop: 01/07/17 10:27 Last Admin: 01/07/17 10:31 Dose: 1 mg Hydromorphone HCl (Dilaudid) 0.5 mg IVPUSH ONETIME ONE Stop: 01/07/17 13:09 Last Admin: 01/07/17 13:40 Dose: 0.5 mg Hydromorphone HCl (Dilaudid Employee Relation Manager 6 Mg In Ns 30 Ml) 6 mg IV ASDIRECTED [facility] PRN Reason: Protocol Last Admin: 01/08/17 00:44 Dose: 6 mg Hydromorphone HCl (Dilaudid) 0.5 mg IVPUSH Q4H PRN PRN Reason: Pain Last Admin: 01/07/17 23:42 Dose: 0.5 mg Hydromorphone HCl (Dilaudid) 2 mg PO Q4H PRN PRN Reason: Pain Last Admin: 01/08/17 10:29 Dose: 2 mg Sodium Chloride (Normal Saline) 1,000 mls @ 999 mls/hr IV STAT ONE Stop: 01/07/17 10:33 Last Admin: 01/07/17 09:46 Dose: 999 mls/hr Sodium Chloride (Normal Saline) 1,000 mls @ 125 mls/hr IV STAT MARK Stop: 01/08/17 00:01 Last Admin: 01/07/17 13:42 Dose: 125 mls/hr Sodium Chloride (Normal Saline) 1,000 mls @ 125 mls/hr IV ASDIRECTED [facility] Last Admin: 01/08/17 07:31 Dose: 125 mls/hr Influenza Virus Vaccine (Flulaval Quad [id number]) 60 mcg IM .ONCE ONE Stop: 01/07/17 15:46 Last Admin: 01/08/17 15:08 Dose: Not Given Ketorolac Tromethamine (Toradol) 30 mg IVPUSH ONETIME ONE Stop: 01/07/17 11:08 Last Admin: 01/07/17 11:47 Dose: 30 mg Ketorolac Tromethamine (Toradol) 30 mg IVPUSH Q6H MARK Stop: 01/08/17 12:31 Last Admin: 01/07/17 19:35 Dose: Not Given Ketorolac Tromethamine (Toradol) 30 mg IVPUSH Q6H PRN PRN Reason: Pain Stop: 01/08/17 12:31 Last Admin: 01/08/17 11:07 Dose: 30 mg Methylprednisolone Sodium Succinate (Solu-Medrol) 125 mg IVPUSH ONETIME ONE Stop: 01/07/17 11:08 Last Admin: 01/07/17 11:48 Dose: 125 mg Metoprolol Succinate (Toprol Xl) 50 mg PO BEDTIME [facility] Last Admin: 01/07/17 20:35 Dose: 50 mg Ondansetron HCl (Zofran) 4 mg IVPUSH ONETIME ONE Stop: 01/07/17 09:34 Last Admin: 01/07/17 09:44 Dose: 4 mg Ondansetron HCl (Zofran) 4 mg IVPUSH ONETIME ONE Stop: 01/07/17 10:28 Last Admin: 01/07/17 10:31 Dose: 4 mg Ondansetron HCl (Zofran) 4 mg IVPUSH Q4H PRN PRN Reason: Nausea Last Admin: 01/08/17 10:14 Dose: 4 mg Promethazine HCl (Phenergan) 25 mg IM ONETIME ONE Stop: 01/07/17 11:08 Last Admin: 01/07/17 11:47 Dose: 25 mg Sertraline HCl (Zoloft) 100 mg PO DAILY [facility] Last Admin: 01/08/17 10:18 Dose: Not Given Tamsulosin HCl (Flomax) 0.4 mg PO ONETIME ONE Stop: 01/07/17 11:08 Last Admin: 01/07/17 12:01 Dose: 0.4 mg Tamsulosin HCl (Flomax) 0.4 mg PO PCBREAKFAST [facility] Last Admin: 01/08/17 10:31 Dose: Not Given *Q Meaningful Use (DIS) - VTE *Q VTE Criteria *Q: - Stroke *Q Stroke Criteria *Q: - AMI *Q AMI Criteria *Q: - Free Text/Narrative Note: Dr. Griffin writes: I have examined this patient today and have reviewed her data and care with Najma VILLASENOR. From the patient's description of her progress and change in pain, it is possible that the stone has moved down and it is no longer causing the obstruction it I concur with her note and plan.
== END 2017-01-08 14:10 | disposition home or self-care (01) ==
LOC: MW.ED 09:12 → MW.MS 12:42
PROVIDERS: ADMIT Family Medicine; ATTEND Family Medicine
DX: N13.2 Hydronephrosis with renal and ureteral calculous obstruction (principal); I49.3 Ventricular premature depolarization; F32.9 Major depressive disorder, single episode, unspecified; D72.829 Elevated white blood cell count, unspecified; Z87.442 Personal history of urinary calculi; Z88.5 Allergy status to narcotic agent; Z79.899 Other long term (current) drug therapy; Z90.710 Acquired absence of both cervix and uterus
CPT/HCPCS: 36415; 74176; 80048; 80053; 81001; 85025; 87086; 96361; 96372; 96374; 96375; 96376; 99285; A9270; G0378; J1170; J1885; J2405; J2550; J2930; J7040; 99283

== ENCOUNTER 2017-03-02 01:29 | Emergency (ER) | payer BC ==
[2017-03-02] MEDS ORDERED: HYDROmorphone 2 MG/ML Syringe IVPUSH ONE (01:39)
[2017-03-02] MEDS ORDERED: Ondansetron 4 MG/2 ML SDV IVPUSH ONE (01:39)
[2017-03-02] MEDS ORDERED: Ketorolac 30 MG/ML SDV IVPUSH ONE (01:39)
[2017-03-02] MEDS ORDERED: Sodium Chloride 0.9% 10 ML Syringe FLUSH PRN (01:39)
[2017-03-02] MEDS ORDERED: Sodium Chloride 0.9% 2.5 ML Syringe FLUSH PRN (01:39)
[2017-03-02] MEDS ORDERED: Sodium Chloride 0.9% 1,000 ML IV ONE (01:39)
--- NOTE | 2017-03-02 01:44 | EDM.PDOC ---
ED HPI GENERAL MEDICAL PROBLEM - General Chief Complaint: Flank Pain Stated Complaint: KIDNEY STONES Time Seen by Provider: 03/02/17 01:34 - History of Present Illness INITIAL COMMENTS - FREE TEXT/NARRATIVE: HISTORY AND PHYSICAL: History of present illness: The patient is a 41-year-old female with a history of 2 prior episodes of kidney stones this year, one in May which she passed wall during her ER evaluation and 1 december that she had an observation admission for and then spontaneously passed, who presents with complaints of left flank pain that started about 7 PM. The patient says she had nausea associated with it and the pain and it seemed to get better so she thought maybe it had gone away but the pain returned despite taking some leftover Dilaudid that she had from her last admission. The patient has not vomited but she has had nausea and she's not had fevers chills or right-sided abdominal pain. Patient has a history of a hysterectomy without ovariectomy and a cholecystectomy. The patient has not had any dysuria frequency or hematuria. The pain came on suddenly and this is very classic of her prior presentations. Review of systems: As per history of present illness and below otherwise all systems reviewed and negative. Past medical history: As per history of present illness and as reviewed below otherwise noncontributory. Surgical history: As per history of present illness and as reviewed below otherwise noncontributory. Social history: No reported history of drug or alcohol abuse. Family history: As per history of present illness and as reviewed below otherwise noncontributory. Physical exam: Gen.: Well-developed well-nourished female who looks uncomfortable in the ER but is nontoxic. Vital signs of been reviewed by me HEENT: Atraumatic, normocephalic, negative for conjunctival pallor or scleral icterus, mucous membranes moist, throat clear, neck supple, nontender, trachea midline. Lungs: Clear to auscultation, breath sounds equal bilaterally, chest nontender. Heart: S1S2, regular, negative for clicks, rubs, or JVD. Abdomen: Soft, nondistended, there is no discrete area of tenderness on palpation and the patient is overall somewhat jumpy with my exam. There is no rebound or guarding. Negative for masses or hepatosplenomegaly. There was slight costovertebral tenderness on the left. Pelvis: Stable nontender. Genitourinary: Deferred. Rectal: Deferred. Extremities: Atraumatic, negative for cords or calf pain. Neurovascular unremarkable. Neuro: Awake, alert, oriented. Cranial nerves II through XII unremarkable. Cerebellum unremarkable. Motor and sensory unremarkable throughout. Exam nonfocal. Diagnostics: CBC CMP UA urine culture CT scan of the abdomen and pelvis Therapeutics: IV fluids Zofran Dilaudid Toradol Flomax Patient looks much improved and feels better and she is aware of all testing results and we will give her urine strainers and medications for home as well as urology follow-up Impression: Ureteral lithiasis Definitive disposition and diagnosis as appropriate pending reevaluation and review of above. flank Pain Score (Numeric/FACES): 8 - Related Data Allergies Allergy/AdvReac Type Severity Reaction Status Date / Time codeine Allergy Nausea and Verified 03/02/17 01:38 Vomiting Home Meds: Home Meds Metoprolol Succinate [Toprol XL 50mg] 50 mg PO BEDTIME 10/05/13 [History] Sertraline HCl 100 mg PO DAILY 10/05/13 [History] HYDROmorphone [Dilaudid] 2 mg PO Q4H PRN #15 tablet 01/08/17 [Rx] Past Medical History Cardiovascular History: Reports: Arrhythmia (PVCs, controlled on Metoprolol) Other Cardiovascular History: pvc Respiratory History: Reports: None. Denies: Asthma, COPD Gastrointestinal History: Reports: None. Denies: GERD Genitourinary History: Reports: Renal Calculus Psychiatric History: Reports: Depression - Infectious Disease History Infectious Disease History: Reports: Chicken Pox - Past Surgical History Female Surgical History: Reports: Hysterectomy Social & Family History - Family History Family Medical History: Noncontributory - Tobacco Use Smoking Status *Q: Never Smoker Second Hand Smoke Exposure: No - Caffeine Use Caffeine Use: Reports: Coffee - Alcohol Use Days Per Week of Alcohol Use: 0 Number of Drinks Per Day: 0 Total Drinks Per Week: 0 - Recreational Drug Use Recreational Drug Use: No Drug Use in Last 12 Months: No - Living Situation & Occupation Occupation: Employed ED ROS GENERAL - Review of Systems Review Of Systems: ROS reveals no pertinent complaints other than HPI. ED EXAM, GENERAL - Physical Exam Exam: See Below (See dictation) Course - Vital Signs Last Recorded V/S: Last Vital Signs Temp 36.3 C 03/02/17 01:35 Pulse 64 03/02/17 01:35 Resp 18 03/02/17 01:35 BP 125/65 03/02/17 01:35 Pulse Ox 95 03/02/17 01:35 - Orders/Labs/Meds Orders: Active Orders 24 hr Category Date Time Status Communication Order [RC] STAT Care 03/02/17 03:03 Ordered Abdomen Pelvis wo Cont [CT] Stat Exams 03/02/17 01:39 Taken CULTURE URINE [RM] Stat Lab 03/02/17 01:30 Received Sodium Chloride 0.9% [Saline Flush] Med 03/02/17 01:39 Active 10 ml FLUSH ASDIRECTED PRN Sodium Chloride 0.9% [Saline Flush] Med 03/02/17 01:39 Active 2.5 ml FLUSH ASDIRECTED PRN Tamsulosin [Flomax] Med 03/02/17 03:03 Once 0.4 mg PO ONETIME ONE Saline Lock Insert [OM.PC] Stat Oth 03/02/17 01:38 Ordered Medication Orders Sodium Chloride (Saline Flush) 10 ml FLUSH ASDIRECTED PRN PRN Reason: Keep Vein Open Last Admin: 03/02/17 01:50 Dose: 10 ml Sodium Chloride (Saline Flush) 2.5 ml FLUSH ASDIRECTED PRN PRN Reason: Keep Vein Open Last Admin: 03/02/17 01:50 Dose: 2.5 ml Tamsulosin HCl (Flomax) 0.4 mg PO ONETIME ONE Stop: 03/02/17 03:04 Labs: Laboratory Tests 03/02/17 03/02/17 03/02/17 Range/Units 01:30 01:50 02:30 WBC 12.60 H (4.0-11.0) K/uL RBC 4.82 (4.30-5.90) M/uL Hgb 14.4 (12.0-16.0) g/dL Hct 43.1 (36.0-46.0) % MCV 89.4 (80.0-98.0) fL MCH 29.9 (27.0-32.0) pg MCHC 33.4 (31.0-37.0) g/dL RDW Std Deviation 41.0 (28.0-62.0) fl RDW Coeff of Cynthia 13 (11.0-15.0) % Plt Count 329 (150-400) K/uL MPV 10.80 (7.40-12.00) fL Neut % (Auto) 59.7 (48.0-80.0) % Lymph % (Auto) 31.2 (16.0-40.0) % Haskell % (Auto) 7.6 (0.0-15.0) % Eos % (Auto) 1.3 (0.0-7.0) % Baso % (Auto) 0.2 (0.0-1.5) % Neut # (Auto) 7.5 H (1.4-5.7) K/uL Lymph # (Auto) 3.9 H (0.6-2.4) K/uL Haskell # (Auto) 1.0 H (0.0-0.8) K/uL Eos # (Auto) 0.2 (0.0-0.7) K/uL Baso # (Auto) 0.0 (0.0-0.1) K/uL Nucleated RBC % 0.0 /100WBC Nucleated RBCs # 0 K/uL Sodium 145 (136-146) mmol/L Potassium 4.2 (3.5-5.1) mmol/L Chloride 112 H (98-110) mmol/L Carbon Dioxide 27 (21-31) mmol/L BUN 15 (6.0-23.0) mg/dL Creatinine 0.7 (0.6-1.5) mg/dL Est Cr Clr Drug Dosing 96.13 mL/min Estimated GFR (MDRD) > 60.0 ml/min Glucose 100 (60-110) mg/dL Calcium 8.7 L (8.8-10.8) mg/dL Total Bilirubin 0.2 (0.1-1.5) mg/dL AST 20 (5-40) IU/L ALT 14 (8-54) IU/L Alkaline Phosphatase 75 (40-150) Total Protein 6.2 (6.0-8.0) g/dL Albumin 3.6 (3.5-5.0) g/dL Globulin 2.6 (2.0-3.5) g/dL Albumin/Globulin Ratio 1.4 (1.3-2.8) Urine Color YELLOW Urine Appearance CLEAR Urine pH 6.0 (5.0-8.0) Ur Specific [place] >= 1.030 (1.001-1.035) Urine Protein NEGATIVE (NEGATIVE) mg/dL Urine Glucose (UA) NEGATIVE (NEGATIVE) mg/dL Urine Ketones NEGATIVE (NEGATIVE) mg/dL Urine Occult Blood MODERATE (NEGATIVE) Urine Nitrite NEGATIVE (NEGATIVE) Urine Bilirubin NEGATIVE (NEGATIVE) Urine Urobilinogen 0.2 (<2.0) EU/dL Ur Leukocyte Esterase NEGATIVE (NEGATIVE) Urine RBC 4-8 (0-2/HPF) Urine WBC 1-2 (0-5/HPF) Ur Epithelial Cells FEW (NONE-FEW) Urine Bacteria FEW (NEGATIVE) Urine Mucus FEW (NONE-MOD) Meds: Medications Generic Name Dose Route Start Last Admin Trade Name Freq PRN Reason Stop Dose Admin Sodium Chloride 10 ml 03/02/17 01:39 03/02/17 01:50 Saline Flush FLUSH 10 ml ASDIRECTED PRN Administration Keep Vein Open Sodium Chloride 2.5 ml 03/02/17 01:39 03/02/17 01:50 Saline Flush FLUSH 2.5 ml ASDIRECTED PRN Administration Keep Vein Open Tamsulosin HCl 0.4 mg 03/02/17 03:03 Flomax PO 03/02/17 03:04 ONETIME ONE Discontinued Medications Generic Name Dose Route Start Last Admin Trade Name Freq PRN Reason Stop Dose Admin Hydromorphone HCl 1 mg 03/02/17 01:39 03/02/17 01:49 Dilaudid IVPUSH 03/02/17 01:40 1 mg ONETIME ONE Administration Sodium Chloride 1,000 mls @ 999 mls/hr 03/02/17 01:39 03/02/17 01:49 Normal Saline IV 03/02/17 02:39 999 mls/hr STAT ONE Administration Ketorolac Tromethamine 30 mg 03/02/17 01:39 03/02/17 01:49 Toradol IVPUSH 03/02/17 01:40 30 mg ONETIME ONE Administration Ondansetron HCl 4 mg 03/02/17 01:39 03/02/17 01:49 Zofran IVPUSH 03/02/17 01:40 4 mg ONETIME ONE Administration Departure - Departure Time of Disposition: 03:05 Disposition: Home, Self-Care 01 Condition: Good Clinical Impression: Ureterolithiasis - Discharge Information Referrals: Hurtado,Ashly, DIGITAL MEDIA STRATEGIST [Primary Care Provider] - Forms: ED Department Discharge Additional Instructions: The following information is given to patients seen in the emergency department who are being discharged to home. This information is to outline your options for follow-up care. We provide all patients seen in our emergency department with a follow-up referral. The need for follow-up, as well as the timing and circumstances, are variable depending upon the specifics of your emergency department visit. If you don't have a primary care physician on staff, we will provide you with a referral. We always advise you to contact your personal physician following an emergency department visit to inform them of the circumstance of the visit and for follow-up with them and/or the need for any referrals to a consulting specialist. The emergency department will also refer you to a specialist when appropriate. This referral assures that you have the opportunity for followup care with a specialist. All of these measure are taken in an effort to provide you with optimal care, which includes your followup. Under all circumstances we always encourage you to contact your private physician who remains a resource for coordinating your care. When calling for followup care, please make the office aware that this follow-up is from your recent emergency room visit. If for any reason you are refused follow-up, please contact the [facility] emergency department at and ask to speak to the emergency department charge nurse. [facility] Specialty Care-Urology [address] [place] [id number] [facility] Primary care- Internal Medicine and Family [address] [id number] Please push hydration and use all medications as prescribed. Please call and follow-up with provider next week as well as urology. Return to ER as needed and as discussed. Strain all urine using the straight as you have been given. - My Orders Last 24 Hours: My Active Orders 03/02/17 01:30 CULTURE URINE [RM] Stat 03/02/17 01:38 Saline Lock Insert [OM.PC] Stat 03/02/17 01:39 Abdomen Pelvis wo Cont [CT] Stat Sodium Chloride 0.9% [Saline Flush] 10 ml FLUSH ASDIRECTED PRN Sodium Chloride 0.9% [Saline Flush] 2.5 ml FLUSH ASDIRECTED PRN 03/02/17 03:03 Communication Order [RC] STAT Tamsulosin [Flomax] 0.4 mg PO ONETIME ONE - Assessment/Plan Last 24 Hours: My Active Orders 03/02/17 01:30 CULTURE URINE [RM] Stat 03/02/17 01:38 Saline Lock Insert [OM.PC] Stat 03/02/17 01:39 Abdomen Pelvis wo Cont [CT] Stat Sodium Chloride 0.9% [Saline Flush] 10 ml FLUSH ASDIRECTED PRN Sodium Chloride 0.9% [Saline Flush] 2.5 ml FLUSH ASDIRECTED PRN 03/02/17 03:03 Communication Order [RC] STAT Tamsulosin [Flomax] 0.4 mg PO ONETIME ONE
[2017-03-02 02:56] LABS: CHLORIDE,CL 112 mmol/L (98-110); SODIUM,NA 145 mmol/L (136-146)
[2017-03-02] MEDS ORDERED: Tamsulosin 0.4 MG Cap.ER PO ONE (03:03)
--- NOTE | 2017-03-04 14:27 | CT ---
EXAM DATE: 03/02/17 PATIENT'S AGE: 41 Patient: ANUSHKA SHELTON Facility: [place], [place] Site . Site : [id number] Study: CT Abdomen/Pelvis [id number] 2:25:24 AM Ordering Physician: Talha Mejia Final Report: INDICATION: Left flank pain history renal stones TECHNIQUE: CT Abdomen and pelvis without i.v. contrast. Coronal and sagittal reformats were obtained. CONTRAST: None COMPARISON: 01/07/2017 FINDINGS: Lower chest: Unremarkable. Liver: Unremarkable. Spleen: Unremarkable. Pancreas: Unremarkable. Gallbladder: Previous cholecystectomy noted without significant intra- or extrahepatic biliary ductal dilatation seen. Kidney: There is a 4 mm stone present in the distal left ureter, just proximal to the UVJ causing mild left ureterectasis and pelviectasis. There is a 1 mm stone present in the mid zone of the left kidney. The right kidney and ureter are unremarkable in appearance. Adrenal: Unremarkable. Bowel: Unremarkable. The appendix is normal in appearance and size. Vascular: Unremarkable. Lymph: Unremarkable. Peritoneum: Unremarkable. No pneumoperitoneum is seen. No significant ascites is noted. Pelvis: There is a cyst or follicle present in the left ovary measures 2.6 cm. Soft tissue: Unremarkable. Bone: Unremarkable for age. IMPRESSION: 1. There is a 4 mm stone present in the distal left ureter, just proximal to the UVJ causing mild left ureterectasis and pelviectasis. Dictated by Tyler Win MD @ 03/02/2017 2:47:17 AM Dictated by: Tyler Win MD @ 03/02/2017 02:47:55 (Electronic Signature) Report Signed by Proxy. [facility] HOSPITALNicole
== END 2017-03-02 03:25 | disposition home or self-care (01) ==
LOC: MW.ED 01:29
DX: N20.2 Calculus of kidney with calculus of ureter (principal); Z88.5 Allergy status to narcotic agent; Z79.899 Other long term (current) drug therapy; N20.1 Calculus of ureter
CPT/HCPCS: 74176; 80053; 81001; 85025; 87086; 96361; 96372; 96374; 96375; 99283; 99284; A9270; J1170; J1885; J2405; J7040

== ENCOUNTER 2017-03-02 09:39 | Emergency (ER) | payer BC ==
[2017-03-02] MEDS ORDERED: Ondansetron 4 MG Tab.DIS PO ONE (10:19)
[2017-03-02] MEDS ORDERED: Ketorolac 60 MG/2 ML SDV IM ONE (10:19)
--- NOTE | 2017-03-02 10:27 | EDM.PDOC ---
ED HPI GENERAL MEDICAL PROBLEM - General Chief Complaint: Genitourinary Problem Stated Complaint: LEFT SIDE BACK PAIN Time Seen by Provider: 03/02/17 09:53 Source of Information: Reports: Patient History Limitations: Reports: No Limitations - History of Present Illness INITIAL COMMENTS - FREE TEXT/NARRATIVE: History of present illness: []Patient was seen here last night and diagnosed with a 4 mm kidney stone about the left UPJ she was discharged with oxycodone that is not working for her and making her very nauseated. He returns with worsening pain. No vomiting. Review of systems: As per history of present illness and below otherwise all systems reviewed and negative. Past medical history: As per history of present illness and as reviewed below otherwise noncontributory. Surgical history: As per history of present illness and as reviewed below otherwise noncontributory. Social history: No reported history of drug or alcohol abuse. Family history: As per history of present illness and as reviewed below otherwise noncontributory. Physical exam: General: Well developed, well nourished in NAD HEENT: Atraumatic, normocephalic, pupils reactive, negative for conjunctival pallor or scleral icterus, mucous membranes moist, throat clear, neck supple, nontender, trachea midline. Lungs: Clear to auscultation, breath sounds equal bilaterally, chest nontender. Heart: S1S2, regular, negative for clicks, rubs, or JVD. Abdomen: Soft, nondistended, nontender. Negative for masses or hepatosplenomegaly. Negative for costovertebral tenderness. Pelvis: Stable nontender. Genitourinary: Deferred. Rectal: Deferred. Extremities: Atraumatic, negative for cords or calf pain. Neurovascular unremarkable. Neuro: Awake, alert, oriented. Cranial nerves II through XII unremarkable. Cerebellum unremarkable. Motor and sensory unremarkable throughout. Exam nonfocal. Diagnostics: [] Therapeutics: [] Impression: [] Plan: [] Definitive disposition and diagnosis as appropriate pending reevaluation and review of above. Left Flank Pain Score (Numeric/FACES): 7 - Related Data Allergies Allergy/AdvReac Type Severity Reaction Status Date / Time codeine Allergy Nausea and Verified 03/02/17 01:38 Vomiting Home Meds: Home Meds Metoprolol Succinate [Toprol XL 50mg] 50 mg PO BEDTIME 10/05/13 [History] Sertraline HCl 100 mg PO DAILY 10/05/13 [History] HYDROmorphone [Dilaudid] 2 mg PO Q4H PRN #15 tablet 01/08/17 [Rx] Hydrocodone/Acetaminophen [Hydrocodon-Acetaminophen 5-325] 1 - 2 tab PO ASDIRECTED PRN 03/02/17 [History] Hyoscyamine [Hyomax-SL] 0.125 mg SL Q4H PRN #16 tab.sl 03/02/17 [Rx] Ondansetron [Zofran ODT] 4 mg PO ASDIRECTED PRN 03/02/17 [History] Tamsulosin [Flomax] 1 cap PO DAILY 03/02/17 [History] Past Medical History HEENT History: Reports: None Cardiovascular History: Reports: Arrhythmia Other Cardiovascular History: pvc Respiratory History: Reports: None Gastrointestinal History: Reports: None Genitourinary History: Reports: Renal Calculus 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: Musculoskeletal History: Reports: None Neurological History: Reports: None Psychiatric History: Reports: Depression Endocrine/Metabolic History: Reports: None Hematologic History: Reports: None Immunologic History: Reports: None Oncologic (Cancer) History: Reports: None Dermatologic History: Reports: None - Infectious Disease History Infectious Disease History: Reports: Chicken Pox - Past Surgical History Female Surgical History: Reports: Hysterectomy Social & Family History - Family History Family Medical History: Noncontributory - Tobacco Use Smoking Status *Q: Never Smoker Second Hand Smoke Exposure: No - Caffeine Use Caffeine Use: Reports: Coffee - Alcohol Use Days Per Week of Alcohol Use: 0 Number of Drinks Per Day: 0 Total Drinks Per Week: 0 - Recreational Drug Use Recreational Drug Use: No Drug Use in Last 12 Months: No - Living Situation & Occupation Occupation: Employed ED ROS GENERAL - Review of Systems Review Of Systems: See Below (See history of present illness) ED EXAM, GI/ABD - Physical Exam Exam: See Below (See history of present illness) Course - Vital Signs Last Recorded V/S: Last Vital Signs Temp 98.1 F 03/02/17 09:55 Pulse 76 03/02/17 09:55 Resp 18 03/02/17 09:55 BP 135/65 03/02/17 09:55 Pulse Ox 99 03/02/17 09:55 - Orders/Labs/Meds Meds: Medications Discontinued Medications Generic Name Dose Route Start Last Admin Trade Name Freq PRN Reason Stop Dose Admin Hydromorphone HCl 1 mg 03/02/17 11:06 03/02/17 11:21 Dilaudid IM 03/02/17 11:07 1 mg ONETIME ONE Administration Hyoscyamine 0.125 mg 03/02/17 10:37 03/02/17 10:43 Hyomax-Sl SL 03/02/17 10:38 0.125 mg ONETIME ONE Administration Ketorolac Tromethamine 60 mg 03/02/17 10:19 03/02/17 10:26 Toradol IM 03/02/17 10:20 60 mg ONETIME ONE Administration Ondansetron HCl 4 mg 03/02/17 10:19 03/02/17 10:26 Zofran Odt PO 03/02/17 10:20 4 mg ONETIME ONE Administration Departure - Departure Time of Disposition: 11:34 Disposition: Home, Self-Care 01 Condition: Good Clinical Impression: Ureterolithiasis - Discharge Information Prescriptions: Hyoscyamine [Hyomax-SL] 0.125 mg SL Q4H PRN #16 tab.sl PRN Reason: Pain Instructions: Kidney Stones, [id number] Referrals: PCP,Unknown [Primary Care Provider] - Forms: ED Department Discharge Additional Instructions: The following information is given to patients seen in the emergency department who are being discharged to home. This information is to outline your options for follow-up care. We provide all patients seen in our emergency department with a follow-up referral. The need for follow-up, as well as the timing and circumstances, are variable depending upon the specifics of your emergency department visit. If you don't have a primary care physician on staff, we will provide you with a referral. We always advise you to contact your personal physician following an emergency department visit to inform them of the circumstance of the visit and for follow-up with them and/or the need for any referrals to a consulting specialist. The emergency department will also refer you to a specialist when appropriate. This referral assures that you have the opportunity for follow-up care with a specialist. All of these measure are taken in an effort to provide you with optimal care, which includes your follow-up. Under all circumstances we always encourage you to contact your private physician who remains a resource for coordinating your care. When calling for follow-up care, please make the office aware that this follow-up is from your recent emergency room visit. If for any reason you are refused follow-up, please contact the [facility] Emergency Department at and asked to speak to the emergency department charge nurse. Continue fluids, ibuprofen every 6 hours, hyoscyamine and oxycodone as needed and directed. Follow-up with Dr. Valdez call on Saturday for an appointment. Return if symptoms worsen or change. [facility] Specialty Care - Urology [address] [place] [id number]
[2017-03-02] MEDS ORDERED: Hyoscyamine 0.125 MG Tab.SL SL ONE (10:37)
[2017-03-02] MEDS ORDERED: HYDROmorphone 1 MG/ML Syringe IM ONE (11:06)
== END 2017-03-02 11:45 | disposition home or self-care (01) ==
LOC: MW.ED 09:39
DX: N20.1 Calculus of ureter (principal); Z88.5 Allergy status to narcotic agent; Z79.899 Other long term (current) drug therapy
CPT/HCPCS: 96372; 99283; A9270; J1170; J1885

== ENCOUNTER 2017-03-05 07:57 | Day surgery (SDC) | payer BC ==
[~2017-03-05 07:57] MED LIST: Lactated Ringers 1,000 ML IV SCH; Sodium Chloride 0.9% 10 ML Syringe FLUSH PRN; Sodium Chloride 0.9% 2.5 ML Syringe FLUSH PRN; ceFAZolin 2 GM in Premix Bag 1 BAG IV ONE
--- NOTE | 2017-03-05 11:07 | PCM.PREANE ---
Preanesthetic Assessment - Procedure Proposed Procedure: Left ureteral stone - Anesthesia/Transfusion/Family Hx Anesthesia History: Prior Anesthesia Reaction Other Type of Anesthesia Reaction Comment: during hip surgery her pulse and blood pressure dropped Transfusion History: No Prior Transfusion(s) - Review of Systems General: No Symptoms Pulmonary: No Symptoms Cardiovascular: Other (PVCs, ) Gastrointestinal: Abdominal Pain (minor currently) Neurological: No Symptoms Other: Reports: Depression (bipolar ) - Physical Assessment O2 Sat by Pulse Oximetry: 97 Respiratory Rate: 16 Vital Signs: Last Vital Signs Temp 97.0 F 03/05/17 08:16 Pulse 61 03/05/17 08:16 Resp 16 03/05/17 08:16 BP 122/74 03/05/17 08:16 Pulse Ox 97 03/05/17 08:16 Height: 5 ft 5 in Weight: 170 lb ASA Class: 2 Mental Status: Alert & Oriented x3 Airway Class: Mallampati = 1 Dentition: Reports: Normal Dentition Thyro-Mental Finger Breadths: 3 Mouth Opening Finger Breadths: 3 ROM/Head Extension: Full Lungs: Clear to Auscultation, Normal Respiratory Effort Cardiovascular: Regular Rate, Regular Rhythm, No Murmurs - Allergies Allergies/Adverse Reactions: Allergies Allergy/AdvReac Type Severity Reaction Status Date / Time adhesive tape Allergy Itching Verified 03/04/17 16:55 codeine Allergy Nausea and Verified 03/04/17 16:55 Vomiting - Blood Blood Available: No Product(s) Available: None - Acknowledgements Anesthesia Type Planned: General Anesthesia (LMA vs OETT) Pt an Appropriate Candidate for the Planned Anesthesia: Yes Alternatives and Risks of Anesthesia Discussed w Pt/Guardian: Yes Pt/Guardian Understands and Agrees with Anesthesia Plan: Yes PreAnesthesia Questionnaire Other HEENT History: wears contacts Cardiovascular History: Reports: Arrhythmia Other Cardiovascular History: hx of PVC's, controlled with Metoprolol Gastrointestinal History: Reports: GERD 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: Musculoskeletal History: Reports: Back Pain, Chronic Neurological History: Reports: Other (See Below) Other Neuro History: hx of motion sickness Psychiatric History: Reports: Anxiety - Past Surgical History HEENT Surgical History: Reports: None GI Surgical History: Reports: Cholecystectomy Female Surgical History: Reports: Section, Tubal Ligation Other Female Surgeries/Procedures: has had this kidney stone since May Neurological Surgical History: Reports: C-Spine Other Neurological Surgeries/Procedures: cervical discectomy Musculoskeletal Surgical History: Reports: Other (See Below) Other Musculoskeletal Surgeries/Procedures:: "GABE" surgery for impingement right hip (has anchors) - SUBSTANCE USE Smoking Status *Q: Never Smoker Recreational Drug Use History: No - HOME MEDS Home Medications: Home Meds Ibuprofen 600 mg PO ASDIRECTED PRN 03/04/17 [History] Metoprolol Succinate [Toprol XL] 50 mg PO BEDTIME 03/04/17 [History] Ondansetron [Zofran] 4 mg PO ASDIRECTED PRN 03/04/17 [History] Sertraline [Zoloft] 100 mg PO DAILY 03/04/17 [History] Tamsulosin [Flomax] 0.4 mg PO DAILY 03/04/17 [History] - CURRENT (IN HOUSE) MEDS Current Meds: Current Medications Lactated Ringer's (Ringers, Lactated) 1,000 mls @ 100 mls/hr IV ASDIRECTED MARK Last Admin: 03/05/17 08:18 Dose: 100 mls/hr Sodium Chloride (Saline Flush) 10 ml FLUSH ASDIRECTED PRN PRN Reason: Keep Vein Open Sodium Chloride (Saline Flush) 2.5 ml FLUSH ASDIRECTED PRN PRN Reason: Keep Vein Open Discontinued Medications Cefazolin Sodium/Dextrose 2 gm (/ Premix) 50 mls @ 100 mls/hr IV ONCALL ONE Stop: 03/05/17 07:29
[2017-03-05] MEDS ORDERED: Propofol 200 MG/20 ML SDV ONE ×2 (11:17→12:36)
[2017-03-05] MEDS ORDERED: Midazolam 1 MG/ML 2 ML SDV ONE ×2 (11:17→12:36)
[2017-03-05] MEDS ORDERED: fentaNYL 100 MCG/2 ML SDV ONE ×2 (11:17→12:36)
[2017-03-05] MEDS ORDERED: Ondansetron 4 MG/2 ML SDV ONE (11:17)
[2017-03-05] MEDS ORDERED: Scopolamine 1.5 MG Transdermal Patch ONE (11:47)
[2017-03-05] MEDS ORDERED: ePHEDrine 50 MG/ML SDV ONE (11:53)
[2017-03-05] MEDS ORDERED: Dexamethasone 4 MG/ML 5 ML MDV ONE (11:53)
[2017-03-05] MEDS ORDERED: diphenhydrAMINE 50 MG/ML SDV ONE (11:53)
[2017-03-05] MEDS ORDERED: Ketorolac 30 MG/ML SDV ONE (12:02)
[2017-03-05] MEDS ORDERED: Lidocaine 2% 5 ML SDV ONE (12:36)
--- NOTE | 2017-03-05 12:55 | PCM.POSTAN ---
POST ANESTHESIA ASSESSMENT - MENTAL STATUS Mental Status: Alert, Oriented - RESPIRATORY Respiratory Status: Respiratory Rate WNL, Airway Patent, O2 Saturation Stable - CARDIOVASCULAR CV Status: Pulse Rate WNL, Blood Pressure Stable - GASTROINTESTINAL GI Status: No Symptoms - POST OP HYDRATION Hydration Status: Adequate & Stable
--- NOTE | 2017-03-05 12:56 | PCM48HPAN ---
Post Anesthesia Note - EVALUATION WITHIN 48HRS OF ANESTHETIC Vital Signs in Normal Range: Yes Patient Participated in Evaluation: Yes Respiratory Function Stable: Yes Airway Patent: Yes Cardiovascular Function Stable: Yes Hydration Status Stable: Yes Pain Control Satisfactory: Yes Nausea and Vomiting Control Satisfactory: Yes Mental Status Recovered: Yes
--- NOTE | 2017-03-05 13:06 | CR ---
EXAMINATION: KUB HISTORY: Stone COMPARISON: Recent CT TECHNIQUE: Single view obtained of the abdomen FINDINGS: There is a nonobstructive bowel gas pattern. No abnormal calcifications project over the re gions of the lower ureters. Bone mineralization is normal. No organomegaly. IMPRESSION: No stones noted within the region of the distal left ureter.
--- NOTE | 2017-03-05 13:06 | OR ---
SURGEON: Flakita Valdez M.D. DATE OF PROCEDURE: 03/05/2017 PREOPERATIVE DIAGNOSIS: Left lower ureteral stone. POSTOPERATIVE DIAGNOSIS: No stone. HISTORY: A 41-year-old was seen in the office yesterday, having had CT scan done on 03/02/2017 that showed 4.4 mm left lower ureteral stone. I arranged for her to have ureteroscopy and stone removal today. Earlier in the day, she said she thought she might have passed it overnight. She was not straining the urine and she could not see or did not look. I did a KUB this morning. I could not see the stone that, however, is necessarily 100% test, so I decided to take a look to make sure the stone is gone if it is not take it out. DESCRIPTION OF PROCEDURE: The patient was given general anesthesia, placed in dorsal lithotomy position, prepped and draped in sterile drapes. Cystourethroscopy was done that showed minor irritation at the left ureteral orifice. The rigid Storz ureteroscope was then advanced in the ureter without dilating the ureter and the ureter was visualized all the way up into the upper ureter and the stone could not be seen. The conclusion was, the stone was passed. With that done, the ureteroscope was removed. The bladder was emptied and the patient was moved to recovery room in good condition. SAY / HUSSEIN /[id number]
== END 2017-03-05 13:03 | disposition home or self-care (01) ==
LOC: MERGE 07:57 → MW.SDS 07:57
PROVIDERS: ATTEND Urology
DX: N20.1 Calculus of ureter (principal); K21.9 Gastro-esophageal reflux disease without esophagitis; F41.9 Anxiety disorder, unspecified; Z87.442 Personal history of urinary calculi; Z88.5 Allergy status to narcotic agent; Z90.49 Acquired absence of other specified parts of digestive tract; Z90.710 Acquired absence of both cervix and uterus; Z98.51 Tubal ligation status; Z88.8 Allergy status to other drugs, medicaments and biological substances; Z79.899 Other long term (current) drug therapy
CPT/HCPCS: 52000; 74000; A9270; C1769; J1100; J1200; J1885; J2250; J2405; J3010; J7120; 00910; J2704

== ENCOUNTER 2017-05-16 13:08 | Day surgery (SDC) | payer BC ==
[~2017-05-16 13:08] MED LIST changes: +Acetaminophen/HYDROcodone 325-5 MG Tab PO PRN; -Sodium Chloride 0.9% 10 ML Syringe FLUSH PRN; -Sodium Chloride 0.9% 2.5 ML Syringe FLUSH PRN; +ceFAZolin 1 GM in Premix Bag 1 BAG IV SCH; -ceFAZolin 2 GM in Premix Bag 1 BAG IV ONE
[2017-05-16] MEDS ORDERED: Scopolamine 1.5 MG Transdermal Patch TRDERM PRN (13:35)
[2017-05-16] MEDS ORDERED: Propofol 200 MG/20 ML SDV ONE ×4 (13:37→15:06)
[2017-05-16] MEDS ORDERED: fentaNYL 100 MCG/2 ML SDV ONE ×2 (13:37→14:49)
[2017-05-16] MEDS ORDERED: Lidocaine 2% 5 ML SDV ONE (13:37)
[2017-05-16] MEDS ORDERED: Midazolam 1 MG/ML 2 ML SDV ONE (13:38)
[2017-05-16] MEDS ORDERED: Scopolamine 1.5 MG Transdermal Patch ONE (13:48)
--- NOTE | 2017-05-16 13:53 | PCM.PREANE ---
Preanesthetic Assessment - Anesthesia/Transfusion/Family Hx Anesthesia History: Prior Anesthesia Reaction Type of Anesthesia Reaction: Excessive Nausea/Vomiting Other Type of Anesthesia Reaction Comment: during hip surgery her pulse and blood pressure dropped Family History of Anesthesia Reaction: No Transfusion History: No Prior Transfusion(s) Intubation History: Unknown - Review of Systems General: No Symptoms Pulmonary: No Symptoms Cardiovascular: No Symptoms Gastrointestinal: No Symptoms Neurological: No Symptoms Other: Reports: None - Physical Assessment Height: 1.65 m Weight: 78.018 kg ASA Class: 2 Mental Status: Alert & Oriented x3 Airway Class: Mallampati = 2 Dentition: Reports: Normal Dentition Thyro-Mental Finger Breadths: 3 Mouth Opening Finger Breadths: 3 ROM/Head Extension: Full Lungs: Clear to Auscultation, Normal Respiratory Effort Cardiovascular: Regular Rate, Regular Rhythm - Allergies Allergies/Adverse Reactions: Allergies Allergy/AdvReac Type Severity Reaction Status Date / Time adhesive tape Allergy Itching Verified 05/15/17 09:00 codeine Allergy Nausea and Verified 05/15/17 09:00 Vomiting - Blood Blood Available: No - Anesthesia Plan Pre-Op Medication Ordered: None - Acknowledgements Anesthesia Type Planned: General Anesthesia Pt an Appropriate Candidate for the Planned Anesthesia: Yes Alternatives and Risks of Anesthesia Discussed w Pt/Guardian: Yes Pt/Guardian Understands and Agrees with Anesthesia Plan: Yes PreAnesthesia Questionnaire HEENT History: Reports: None Other HEENT History: wears glasses/contacts Cardiovascular History: Reports: Arrhythmia Other Cardiovascular History: has palpitations, PVC's- controlled with Metoprolol Respiratory History: Reports: None Gastrointestinal History: Reports: GERD Genitourinary History: Reports: Renal Calculus 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 knee pain) Neurological History: Reports: Other (See Below) Other Neuro History: hx of severe motion sickness Psychiatric History: Reports: Anxiety Endocrine/Metabolic History: Reports: None Hematologic History: Reports: None Immunologic History: Reports: None Oncologic (Cancer) History: Reports: None Dermatologic History: Reports: None - Infectious Disease History Infectious Disease History: Reports: Chicken Pox - Past Surgical History Head Surgeries/Procedures: Reports: None GI Surgical History: Reports: Cholecystectomy Female Surgical History: Reports: Section, Hysterectomy, Lithotripsy /ESWL, Tubal Ligation Neurological Surgical History: Reports: C-Spine, Spinal Fusion Other Neurological Surgeries/Procedures: has screws in neck from cervical fusion Musculoskeletal Surgical History: Reports: Other (See Below) Other Musculoskeletal Surgeries/Procedures:: repair of right hip impingement syndrome (has anchors) - SUBSTANCE USE Smoking Status *Q: Never Smoker Second Hand Smoke Exposure: No Days Per Week of Alcohol Use: 0 Number of Drinks Per Day: 0 Total Drinks Per Week: 0 Recreational Drug Use History: No - HOME MEDS Home Medications: Home Meds Metoprolol Succinate [Toprol XL] 50 mg PO BEDTIME 03/04/17 [History] Sertraline [Zoloft] 150 mg PO BEDTIME 03/04/17 [History] Evening [place] Oil 500 mg PO BEDTIME 05/15/17 [History] - CURRENT (IN HOUSE) MEDS Current Meds: Current Medications Hydrocodone Bitart/Acetaminophen ([place] 325-5 Mg) 1 - 2 tab PO Q4H PRN PRN Reason: Pain Cefazolin Sodium/Dextrose 1 gm (/ Premix) 50 mls @ 100 mls/hr IV ONCALL MARK Lactated Ringer's (Ringers, Lactated) 1,000 mls @ 100 mls/hr IV ASDIRECTED MARK Scopolamine (Transderm-Scop) 1.5 mg TRDERM Q72H PRN PRN Reason: Nausea Discontinued Medications Fentanyl (Sublimaze) Confirm Administered Dose 100 mcg .ROUTE .STK-MED ONE Stop: 05/16/17 13:38 Lidocaine (Xylocaine-Mpf 2%) Confirm Administered Dose 5 ml .ROUTE .STK-MED ONE Stop: 05/16/17 13:38 Midazolam HCl (Versed 1 Mg/Ml) Confirm Administered Dose 2 mg .ROUTE .STK-MED ONE Stop: 05/16/17 13:39 Propofol (Diprivan 20 Ml) Confirm Administered Dose 200 mg .ROUTE .STK-MED ONE Stop: 05/16/17 13:38
[2017-05-16] MEDS ORDERED: Lidocaine 1% 20 ML MDV ONE (14:03)
[2017-05-16] MEDS ORDERED: Ondansetron 4 MG/2 ML SDV ONE (14:23)
[2017-05-16] MEDS ORDERED: Dexamethasone 4 MG/ML 5 ML MDV ONE (14:23)
[2017-05-16] MEDS ORDERED: fentaNYL 100 MCG/2 ML SDV IVPUSH PRN (15:09)
[2017-05-16] MEDS ORDERED: Ketorolac 30 MG/ML SDV ONE ×2 (15:11)
--- NOTE | 2017-05-16 15:22 | PCM.OPNOTE ---
- General Post-Op/Procedure Note Date of Surgery/Procedure: 05/16/17 Operative Procedure(s): Right knee arthroscopy with limited synovectomy Post-Op Diagnosis: R knee fat pad impingement Anesthesia Technique: General LMA Primary Surgeon: Noy Tucker Gis Professor: Sd Molina in mLs: 5 Condition: Good Free Text/Narrative:: tt=21 min #[id number]
[2017-05-16] MEDS ORDERED: Promethazine 25 MG/ML SDV IM ONE (15:37)
[2017-05-16] MEDS ORDERED: Promethazine 25 MG/ML SDV ONE (15:42)
--- NOTE | 2017-05-16 16:08 | PCM.POSTAN ---
POST ANESTHESIA ASSESSMENT - MENTAL STATUS Mental Status: Alert, Oriented - RESPIRATORY Respiratory Status: Respiratory Rate WNL, Airway Patent, O2 Saturation Stable - CARDIOVASCULAR CV Status: Pulse Rate WNL, Blood Pressure Stable - GASTROINTESTINAL GI Status: No Symptoms - POST OP HYDRATION Hydration Status: Adequate & Stable - OBSERVATIONS Free Text/Narrative:: Despite intra-op TIVA, patient still having nausea in PACU, it is improving s/p phenergan at this time.
--- NOTE | 2017-05-16 16:57 | PCM48HPAN ---
Post Anesthesia Note - EVALUATION WITHIN 48HRS OF ANESTHETIC Vital Signs in Normal Range: Yes Patient Participated in Evaluation: Yes Respiratory Function Stable: Yes Airway Patent: Yes Cardiovascular Function Stable: Yes Hydration Status Stable: Yes Pain Control Satisfactory: Yes Nausea and Vomiting Control Satisfactory: Yes Mental Status Recovered: Yes Resp Rate: 9
--- NOTE | 2017-05-16 20:53 | OR ---
SURGEON: Noy Tucker MD DATE OF PROCEDURE: 05/16/2017 PREOPERATIVE DIAGNOSIS: Right knee pain. POSTOPERATIVE DIAGNOSIS: Right knee fat pad impingement. PROCEDURE: Right knee arthroscopy with limited synovectomy. OPTOMETRY ASSISTANT: Sd Segal MD, PGY3. ANESTHESIA: General. ESTIMATED BLOOD LOSS: 5 mL. TOURNIQUET TIME: See nursing record. COMPLICATIONS: None. DVT PROPHYLAXIS: Not indicated. IMPLANTS USED: None. BRIEF HISTORY: Mitzi is a 41-year-old female, who has developed right knee pain. She did have an MRI which did show some impingement of the fat pad. No other structural abnormalities were found. She had tried conservative treatment which had not been helpful. Due to her lack of response to conservative treatment, I did recommend surgical intervention. The risks and goals of procedure were discussed with the patient and were documented preoperatively. She agreed to proceed. DESCRIPTION OF PROCEDURE: The patient was properly identified and brought to the operating room. She was transferred from the OR cart and placed on the operating table in supine position. General anesthesia was administered. After adequate anesthesia was obtained, a well-padded tourniquet was applied to the right lower extremity. The right lower extremity was then prepped in standard fashion using ChloraPrep solution. It was then sterilely draped. A time-out was performed to ensure correct site and procedure. Preoperative antibiotics were given. The surgical site had been marked preoperatively. An Esmarch was used to exsanguinate the right lower extremity and the tourniquet was inflated to 250 mmHg. A lateral portal arthrotomy was established. Blunt trocar and cannula were introduced into the suprapatellar pouch. Camera, inflow, and outflow were assembled. No significant synovitis was noted within the suprapatellar pouch. The patellofemoral joint was visualized. The joint surfaces appeared pristine. There was some impingement of the fat pad as the knee was taken through flexion extension. No plica was noted. I then extended down the lateral and medial gutter. No loose bodies were identified. I then entered the medial compartment. A medial portal arthrotomy was established. A blunt probe was inserted. The meniscus was extensively probed. This was found to be intact. No significant degenerative changes were noted. I then entered the notch. Both the ACL and PCL were visualized and probed and found to be intact. I finally entered the lateral compartment. She did have a linear fissure along the lateral aspect of the lateral tibial plateau. This was probed and was found to be nearly full-thickness, however, no loose cartilage flap was noted. Lateral femoral condyle showed no degenerative findings. The meniscus was extensively probed and found to be intact. I then returned to the patellofemoral joint. A 4.0 mm oscillating shaver was used to resect the portion of the fat pad. No further impingement along the patellofemoral joint was noted. Instruments were then removed from the knee. The portal sites were closed with 3-0 nylon. Lidocaine 1% was injected along the portal tracts. Xeroform gauze was placed over the wound and a bulky dressing was applied. The tourniquet was then deflated. She was awakened from her anesthetic and transferred back to the operating room cart. She was brought to recovery room in stable condition. All needle and sponge counts were correct. YOLETTE / HUSSEIN /[id number]
== END 2017-05-16 17:45 | disposition home or self-care (01) ==
LOC: MW.SDS 13:08
PROVIDERS: ATTEND Orthopaedic Surgery
DX: M25.861 Other specified joint disorders, right knee (principal); F41.9 Anxiety disorder, unspecified; K21.9 Gastro-esophageal reflux disease without esophagitis; Z87.442 Personal history of urinary calculi; Z88.6 Allergy status to analgesic agent; Z79.899 Other long term (current) drug therapy; Z90.49 Acquired absence of other specified parts of digestive tract
CPT/HCPCS: 29875; A9270; J0690; J1100; J1885; J2250; J2405; J2550; J3010; J7120; 01400; 88304; J2704

== ENCOUNTER 2017-09-14 13:17 | Emergency (ER) | payer BC ==
--- NOTE | 2017-09-14 13:44 | EDM.PDOC ---
ED HPI GENERAL MEDICAL PROBLEM - General Chief Complaint: Wound Recheck Stated Complaint: TIMOTEO SERNA OPENED Time Seen by Provider: 09/14/17 13:17 Source of Information: Reports: Patient - History of Present Illness INITIAL COMMENTS - FREE TEXT/NARRATIVE: HISTORY AND PHYSICAL: History of present illness: [Mitzi is a 41-year-old female here for recheck of surgical wound. She states that she had right hip surgery 1 week ago. She has two 2cm incisions, she took the sutures out herself last night. She reports that one of the incision sites opened up. She denies any purulent discharge, erythema, tenderness, fevers, or chills. She has a follow up with her surgeon in [place] in 3 days. ] Review of systems: As per history of present illness and below otherwise all systems reviewed and negative. Past medical history: As per history of present illness and as reviewed below otherwise noncontributory. Surgical history: As per history of present illness and as reviewed below otherwise noncontributory. Social history: No reported history of drug or alcohol abuse. Family history: As per history of present illness and as reviewed below otherwise noncontributory. Physical exam: HEENT: Atraumatic, normocephalic, pupils reactive, negative for conjunctival pallor or scleral icterus, mucous membranes moist, throat clear, neck supple, nontender, trachea midline. Lungs: Clear to auscultation, breath sounds equal bilaterally, chest nontender. Heart: S1S2, regular, negative for clicks, rubs, or JVD. Genitourinary: Deferred. Rectal: Deferred. Extremities: There are two, 1.5cm surgical incisions on the right hip. The more lateral incsion is healing well. The medial incision is gaping without any discharge or erythema. Atraumatic, negative for cords or calf pain. Neurovascular unremarkable. Neuro: Awake, alert, oriented. Cranial nerves II through XII unremarkable. Cerebellum unremarkable. Motor and sensory unremarkable throughout. Exam nonfocal. Notes: Diagnostics: [] Therapeutics: [Steri strips with mastisol] Impression: [Surgical wound] Plan: [#1 Keep the area clean and dry, steri strips will fall off on their own #2 Follow up for any signs of infection such as yellow discharge, increased redness, pain, fevers, chills, etc as discussed #3 Follow up with your orthopedic provider ] Definitive disposition and diagnosis as appropriate pending reevaluation and review of above. Right Leg Pain Score (Numeric/FACES): 4 - Related Data Allergies Allergy/AdvReac Type Severity Reaction Status Date / Time adhesive tape Allergy Itching Verified 09/14/17 13:26 codeine Allergy Nausea and Verified 09/14/17 13:26 Vomiting Home Meds: Home Meds Metoprolol Succinate [Toprol XL] 50 mg PO BEDTIME 03/04/17 [History] Sertraline [Zoloft] 150 mg PO BEDTIME 03/04/17 [History] Evening [place] Oil 500 mg PO BEDTIME 05/15/17 [History] Past Medical History HEENT History: Reports: None Other HEENT History: wears glasses/contacts Cardiovascular History: Reports: Arrhythmia Other Cardiovascular History: has palpitations, PVC's- controlled with Metoprolol Respiratory History: Reports: None Gastrointestinal History: Reports: GERD Genitourinary History: Reports: Renal Calculus 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: Musculoskeletal History: Reports: Back Pain, Chronic, Other (See Below) Neurological History: Reports: Other (See Below) Other Neuro History: hx of severe motion sickness Psychiatric History: Reports: Anxiety Endocrine/Metabolic History: Reports: None Hematologic History: Reports: None Immunologic History: Reports: None Oncologic (Cancer) History: Reports: None Dermatologic History: Reports: None - Infectious Disease History Infectious Disease History: Reports: Chicken Pox - Past Surgical History Head Surgeries/Procedures: Reports: None GI Surgical History: Reports: Cholecystectomy Female Surgical History: Reports: Section, Hysterectomy, Lithotripsy /ESWL, Tubal Ligation Neurological Surgical History: Reports: C-Spine, Spinal Fusion Other Neurological Surgeries/Procedures: has screws in neck from cervical fusion Musculoskeletal Surgical History: Reports: Other (See Below) Other Musculoskeletal Surgeries/Procedures:: repair of right hip impingement syndrome (has anchors) Social & Family History - Family History Family Medical History: Noncontributory - Tobacco Use Smoking Status *Q: Never Smoker - Caffeine Use Caffeine Use: Reports: Coffee, Tea - Alcohol Use Days Per Week of Alcohol Use: 1 Number of Drinks Per Day: 2 Total Drinks Per Week: 2 - Recreational Drug Use Recreational Drug Use: No - Living Situation & Occupation Occupation: Employed ED ROS GENERAL - Review of Systems Review Of Systems: ROS reveals no pertinent complaints other than HPI. ED EXAM, SKIN/RASH Exam: See Below (see dictation) Course - Vital Signs Last Recorded V/S: Last Vital Signs Temp 36.7 C 09/14/17 13:28 Pulse 80 09/14/17 13:28 Resp 16 09/14/17 13:28 BP 113/76 09/14/17 13:44 Pulse Ox 98 09/14/17 13:28 Departure - Departure Time of Disposition: 13:59 Disposition: Home, Self-Care 01 Condition: Good Clinical Impression: Surgical wound dehiscence - Discharge Information Forms: ED Department Discharge Additional Instructions: The following information is given to patients seen in the emergency department who are being discharged to home. This information is to outline your options for follow-up care. We provide all patients seen in our emergency department with a follow-up referral. The need for follow-up, as well as the timing and circumstances, are variable depending upon the specifics of your emergency department visit. If you don't have a primary care physician on staff, we will provide you with a referral. We always advise you to contact your personal physician following an emergency department visit to inform them of the circumstance of the visit and for follow-up with them and/or the need for any referrals to a consulting specialist. The emergency department will also refer you to a specialist when appropriate. This referral assures that you have the opportunity for follow-up care with a specialist. All of these measure are taken in an effort to provide you with optimal care, which includes your follow-up. Under all circumstances we always encourage you to contact your private physician who remains a resource for coordinating your care. When calling for follow-up care, please make the office aware that this follow-up is from your recent emergency room visit. If for any reason you are refused follow-up, please contact the [facility] at and asked to speak to the emergency department charge nurse. [facility] [address] [place] [id number] #1 Keep the area clean and dry, steri strips will fall off on their own #2 Follow up for any signs of infection such as yellow discharge, increased redness, pain, fevers, chills, etc as discussed #3 Follow up with your orthopedic provider
== END 2017-09-14 14:16 | disposition home or self-care (01) ==
LOC: MW.ED 13:17
DX: T81.30XA Disruption of wound, unspecified, initial encounter (principal); Z88.5 Allergy status to narcotic agent; Z91.048 Other nonmedicinal substance allergy status
CPT/HCPCS: 99282

== ENCOUNTER 2019-05-27 06:47 | Day surgery (SDC) | payer BC ==
[~2019-05-27 06:47] MED LIST changes: -Acetaminophen/HYDROcodone 325-5 MG Tab PO PRN; -ceFAZolin 1 GM in Premix Bag 1 BAG IV SCH
[2019-05-27] MEDS ORDERED: Propofol 200 MG/20 ML SDV ONE ×3 (07:22→08:11)
[2019-05-27] MEDS ORDERED: fentaNYL 250 MCG/5 ML SDV ONE (07:22)
[2019-05-27] MEDS ORDERED: Lidocaine 1% 20 ML MDV ONE (07:30)
[2019-05-27] MEDS ORDERED: Haloperidol Lactate 5 MG/ML SDV IM ONE (07:37)
[2019-05-27] MEDS ORDERED: Scopolamine 1.5 MG Transdermal Patch ONE (07:41)
--- NOTE | 2019-05-27 07:41 | PCM.PREANE ---
Preanesthetic Assessment - Anesthesia/Transfusion/Family Hx Anesthesia History: Prior Anesthesia Without Reaction Type of Anesthesia Reaction: Excessive Nausea/Vomiting Other Type of Anesthesia Reaction Comment: "nausea" Family History of Anesthesia Reaction: No Transfusion History: No Prior Transfusion(s) Intubation History: Unknown - Review of Systems General: No Symptoms Pulmonary: No Symptoms Cardiovascular: No Symptoms Gastrointestinal: No Symptoms Neurological: No Symptoms Other: Reports: None - Physical Assessment NPO Status Date: 05/26/19 Vital Signs: Last Vital Signs Temp 97.5 F 05/27/19 07:10 Pulse 65 05/27/19 07:10 Resp 16 05/27/19 07:10 BP 114/74 05/27/19 07:10 Pulse Ox 98 05/27/19 07:10 Height: 5 ft 5 in Weight: 80.739 kg ASA Class: 2 Mental Status: Alert & Oriented x3 Airway Class: Mallampati = 2 Dentition: Reports: Normal Dentition ROM/Head Extension: Full Lungs: Clear to Auscultation, Normal Respiratory Effort Cardiovascular: Regular Rate, Regular Rhythm - Allergies Allergies/Adverse Reactions: Allergies Allergy/AdvReac Type Severity Reaction Status Date / Time adhesive tape Allergy Itching Verified 05/25/19 12:38 codeine Allergy Nausea and Verified 05/25/19 12:38 Vomiting - Blood Blood Available: No - Anesthesia Plan Pre-Op Medication Ordered: None - Acknowledgements Anesthesia Type Planned: General Anesthesia Pt an Appropriate Candidate for the Planned Anesthesia: Yes Alternatives and Risks of Anesthesia Discussed w Pt/Guardian: Yes Pt/Guardian Understands and Agrees with Anesthesia Plan: Yes Additional Comments: pmh: anxiety, palpitations, hx ponv GA PreAnesthesia Questionnaire HEENT History: Reports: Other (See Below) Other HEENT History: wears glasses/contacts Cardiovascular History: Reports: Arrhythmia Other Cardiovascular History: has palpitations, PVC's- controlled with Metoprolol Respiratory History: Reports: None Gastrointestinal History: Reports: GERD Genitourinary History: Reports: Renal Calculus 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: Musculoskeletal History: Reports: Other (See Below) Other Musculoskeletal History: hx hip implingement syndrome Neurological History: Reports: Other (See Below) Other Neuro History: hx of severe motion sickness Psychiatric History: Reports: Anxiety Endocrine/Metabolic History: Reports: None Hematologic History: Reports: None Immunologic History: Reports: None Oncologic (Cancer) History: Reports: None Dermatologic History: Reports: None - Infectious Disease History Infectious Disease History: Reports: Chicken Pox - Past Surgical History Head Surgeries/Procedures: Reports: None HEENT Surgical History: Reports: None Cardiovascular Surgical History: Reports: None Respiratory Surgical History: Reports: None GI Surgical History: Reports: Cholecystectomy Female Surgical History: Reports: Section, Hysterectomy, Lithotripsy /ESWL, Tubal Ligation Endocrine Surgical History: Reports: None Neurological Surgical History: Reports: C-Spine Other Neurological Surgeries/Procedures: has screws in neck from cervical fusion Musculoskeletal Surgical History: Reports: Arthroscopic Knee, Other (See Below) Other Musculoskeletal Surgeries/Procedures:: hx hip surgery for impingement syndrome (has anchors) Oncologic Surgical History: Reports: None Dermatological Surgical History: Reports: None - SUBSTANCE USE Smoking Status *Q: Never Smoker - HOME MEDS Home Medications: Home Meds Metoprolol Succinate [Toprol XL] 50 mg PO BEDTIME 03/04/17 [History] Sertraline [Zoloft] 100 mg PO BEDTIME 03/04/17 [History] Famotidine [Pepcid AC] 20 mg PO DAILY PRN 05/25/19 [History] Ibuprofen 600 mg PO ASDIRECTED PRN 05/25/19 [History] traZODone HCl [Trazodone HCl] 50 mg PO BEDTIME 05/25/19 [History] - CURRENT (IN HOUSE) MEDS Current Meds: Current Medications Haloperidol Lactate (Haldol) 2 mg IM ONETIME ONE Stop: 05/27/19 07:38 Cefazolin Sodium/Dextrose 2 gm (/ Premix) 50 mls @ 100 mls/hr IV ONCALL MARK Lactated Ringer's (Ringers, Lactated) 1,000 mls @ 100 mls/hr IV ASDIRECTED MARK Last Admin: 05/27/19 07:17 Dose: 100 mls/hr Discontinued Medications Fentanyl (Sublimaze) Confirm Administered Dose 250 mcg .ROUTE .STK-MED ONE Stop: 05/27/19 07:23 Lidocaine HCl (Xylocaine 1%) Confirm Administered Dose 20 ml .ROUTE .STK-MED ONE Stop: 05/27/19 07:31 Propofol (Diprivan 20 Ml) Confirm Administered Dose 200 mg .ROUTE .STK-MED ONE Stop: 05/27/19 07:23
[2019-05-27] MEDS ORDERED: ceFAZolin/Dextrose,Iso-Osmotic 2 GM/50 ML Duplex Bag IV ONE (07:43)
[2019-05-27] MEDS ORDERED: Haloperidol Lactate 5 MG/ML SDV ONE (07:46)
[2019-05-27] MEDS ORDERED: Midazolam 1 MG/ML 2 ML SDV ONE (07:57)
[2019-05-27] MEDS ORDERED: Dexamethasone 4 MG/ML 5 ML MDV ONE (08:00)
[2019-05-27] MEDS ORDERED: Ondansetron 4 MG/2 ML SDV ONE (08:00)
[2019-05-27] MEDS ORDERED: ceFAZolin 2 GM in Premix Bag 1 BAG IV SCH (08:00)
[2019-05-27] MEDS ORDERED: Ketamine 500 mg/10 ML MDV ONE (08:33)
[2019-05-27] MEDS ORDERED: ePHEDrine 50 MG/ML SDV ONE (08:40)
[2019-05-27] MEDS ORDERED: Ketorolac 30 MG/ML SDV ONE (09:00)
[2019-05-27] MEDS ORDERED: Meperidine PF 25 MG/ML Syringe ONE (09:15)
--- NOTE | 2019-05-27 09:23 | PCM.OPNOTE ---
- General Post-Op/Procedure Note Date of Surgery/Procedure: 05/27/19 Operative Procedure(s): Left knee arthroscopy with limited synovectomy/plica excision Findings: Medial plica with synovitis and abrasion of medial trochlear groove articular cartilage Medial compartment shows normal medial meniscus and femoral and tibial articular cartilage Notch showed a normal-appearing anterior cruciate ligament Lateral compartment shows normal lateral meniscus and femoral and tibial articular cartilage Patellofemoral joint shows abrasion of the medial trochlea/femur from the plica , other trochlear groove cartilage is normal, patella articular cartilage shows 1-to changes No loose bodies 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 Patient had the same symptoms in her left knee and pain to palpation over the medial femoral condyle consistent with plica syndrome. We discussed the risks and benefits of arthroscopy and limited synovectomy/plica excision. Patient consented to proceed with surgery. Patient was taken to the operating room. After adequate general anesthesia, she remained in the supine position. A tourniquet was placed around the left proximal thigh but the tourniquet was not inflated during the case. The left lower extremity was prepped and draped in usual sterile manner. Arthroscopy was performed with a anteromedial arthroscopy portal and lateral parapatellar working/arthroscopy portal, and superior medial drain portal. The above diagnostic arthroscopy findings are noted. The plica was resected with an ablation wand. No remnant of the plica was visualized after completion. Fluid expressed from the joint. Lidocaine was injected in the subcutaneous tissue and capsule but not the joint. Portals were closed with interrupted nylon sutures. A sterile dressing was applied and patient was accompanied to the recovery room in stable condition. Pain management: Ibuprofen and Vicodin Operative antibiotics not indicated for outpatient procedure Venous thrombi embolism prophylaxis not indicated for arthroscopic procedure Restrictions: Weightbearing as tolerated on left lower extremity, resume activities as tolerated, no restrictions.
--- NOTE | 2019-05-27 10:02 | PCM.POSTAN ---
POST ANESTHESIA ASSESSMENT - MENTAL STATUS Mental Status: Alert, Oriented - VITAL SIGNS Vital Signs: Last Vital Signs Temp 98.1 F 05/27/19 09:17 Pulse 72 05/27/19 09:43 Resp 11 L 05/27/19 09:43 BP 100/49 L 05/27/19 09:43 Pulse Ox 94 L 05/27/19 09:43 - RESPIRATORY Respiratory Status: Respiratory Rate WNL, Airway Patent, O2 Saturation Stable - CARDIOVASCULAR CV Status: Pulse Rate WNL, Blood Pressure Stable - GASTROINTESTINAL GI Status: No Symptoms - POST OP HYDRATION Hydration Status: Adequate & Stable
--- NOTE | 2019-05-27 10:03 | PCM48HPAN ---
Post Anesthesia Note - EVALUATION WITHIN 48HRS OF ANESTHETIC Vital Signs in Normal Range: Yes Patient Participated in Evaluation: Yes Respiratory Function Stable: Yes Airway Patent: Yes Cardiovascular Function Stable: Yes Hydration Status Stable: Yes Pain Control Satisfactory: Yes Nausea and Vomiting Control Satisfactory: Yes Mental Status Recovered: Yes Vital Signs: Last Vital Signs Temp 98.1 F 05/27/19 09:17 Pulse 72 05/27/19 09:43 Resp 11 L 05/27/19 09:43 BP 100/49 L 05/27/19 09:43 Pulse Ox 94 L 05/27/19 09:43
== END 2019-05-27 11:10 | disposition home or self-care (01) ==
LOC: MW.SDS 06:47
PROVIDERS: ATTEND Orthopaedic Surgery
DX: M67.52 Plica syndrome, left knee (principal); M65.862 Other synovitis and tenosynovitis, left lower leg; M25.462 Effusion, left knee; F41.9 Anxiety disorder, unspecified; Z88.5 Allergy status to narcotic agent; Z91.048 Other nonmedicinal substance allergy status; Z79.899 Other long term (current) drug therapy
CPT/HCPCS: 29875; J0131; J0690; J1100; J1630; J1885; J2001; J2175; J2250; J2405; J2704; J3010; J7120

== ENCOUNTER 2019-08-18 16:32 | Emergency (ER) | payer BC ==
[2019-08-18] MEDS ORDERED: Sodium Chloride 0.9% 10 ML Syringe FLUSH PRN (16:40)
[2019-08-18] MEDS ORDERED: Sodium Chloride 0.9% 2.5 ML Syringe FLUSH PRN (16:40)
[2019-08-18] MEDS ORDERED: Sodium Chloride 0.9% 1,000 ML IV ONE (16:50)
[2019-08-18] MEDS ORDERED: Ondansetron 4 MG/2 ML SDV IVPUSH ONE (16:50)
--- NOTE | 2019-08-18 16:52 | EDM.PDOC ---
ED HPI GENERAL MEDICAL PROBLEM - General Chief Complaint: Abdominal Pain Stated Complaint: RT SIDE ABDOMINAL PAIN Time Seen by Provider: 08/18/19 16:51 Source of Information: Reports: Patient History Limitations: Reports: No Limitations - History of Present Illness INITIAL COMMENTS - FREE TEXT/NARRATIVE: HISTORY AND PHYSICAL: History of present illness: Patient is a 43-year-old female presents to the ED with complaint of right lower abdominal pain. Patient states that for the past couple of days she has been having generalized abdominal pain that she attributed to gas. She states this morning she started having more localized right lower abdominal pain. She reports nausea but has not had any vomiting or diarrhea. She has had normal nonbloody stools. She denies any fevers, chills, chest pain, cough, shortness of breath, dysuria, hematuria. Patient reports history of hysterectomy and cholecystectomy. Review of systems: As per history of present illness and below otherwise all systems reviewed and negative. Past medical history: As per history of present illness and as reviewed below otherwise noncontributory. Surgical history: As per history of present illness and as reviewed below otherwise noncontributory. Social history: No reported history of drug or alcohol abuse. Family history: As per history of present illness and as reviewed below otherwise noncontributory. Physical exam: General: Patient sitting comfortably in no acute distress and nontoxic appearing HEENT: Atraumatic, normocephalic, pupils reactive, negative for conjunctival pallor or scleral icterus, mucous membranes moist, throat clear, neck supple, nontender, trachea midline. No meningeal signs. Lungs: Clear to auscultation, breath sounds equal bilaterally, chest nontender. Heart: S1S2, regular, negative for clicks, rubs, or overt murmur. Abdomen: RLQ tenderness to palpation. nondistended. Negative for masses or hepatosplenomegaly. Negative for costovertebral tenderness. No rigidity, guarding or rebound Pelvis: Stable nontender. Genitourinary: Deferred. Rectal: Deferred. Extremities: Atraumatic, negative for cords or calf pain. Neurovascular unremarkable. Neuro: Awake, alert, oriented. Cranial nerves II through XII unremarkable. Cerebellum unremarkable. Motor and sensory unremarkable throughout. Exam nonfocal. Notes: Diagnostics: CBC, CMP, UA Therapeutics: 1L NS IV 4mg Zofran IV Prescriptions: Impression: Abdominal pain Plan: Alternate tylenol and motrin as needed Follow up with primary care provider Return to ED As needed as discussed Definitive disposition and diagnosis as appropriate pending reevaluation and review of above. abdomen Pain Score (Numeric/FACES): 7 - Related Data Allergies Allergy/AdvReac Type Severity Reaction Status Date / Time adhesive tape Allergy Itching Verified 05/25/19 12:38 codeine Allergy Nausea and Verified 05/25/19 12:38 Vomiting Home Meds: Home Meds Metoprolol Succinate [Toprol XL] 50 mg PO BEDTIME 03/04/17 [History] Sertraline [Zoloft] 150 mg PO BEDTIME 03/04/17 [History] traZODone HCl [Trazodone HCl] 50 mg PO BEDTIME 05/25/19 [History] Past Medical History HEENT History: Reports: Other (See Below) Other HEENT History: wears glasses/contacts Cardiovascular History: Reports: Arrhythmia Other Cardiovascular History: has palpitations, PVC's- controlled with Metoprolol Respiratory History: Reports: None Gastrointestinal History: Reports: GERD Genitourinary History: Reports: Renal Calculus 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: Musculoskeletal History: Reports: Other (See Below) Other Musculoskeletal History: hx hip implingement syndrome Neurological History: Reports: Other (See Below) Other Neuro History: hx of severe motion sickness Psychiatric History: Reports: Anxiety Endocrine/Metabolic History: Reports: None Hematologic History: Reports: None Immunologic History: Reports: None Oncologic (Cancer) History: Reports: None Dermatologic History: Reports: None - Infectious Disease History Infectious Disease History: Reports: Chicken Pox - Past Surgical History Head Surgeries/Procedures: Reports: None HEENT Surgical History: Reports: None Cardiovascular Surgical History: Reports: None Respiratory Surgical History: Reports: None GI Surgical History: Reports: Cholecystectomy Female Surgical History: Reports: Section, Hysterectomy, Lithotripsy /ESWL, Tubal Ligation Endocrine Surgical History: Reports: None Neurological Surgical History: Reports: C-Spine Other Neurological Surgeries/Procedures: has screws in neck from cervical fusion Musculoskeletal Surgical History: Reports: Arthroscopic Knee, Other (See Below) Other Musculoskeletal Surgeries/Procedures:: hx hip surgery for impingement syndrome (has anchors) Oncologic Surgical History: Reports: None Dermatological Surgical History: Reports: None Social & Family History - Family History Family Medical History: Noncontributory - Caffeine Use Caffeine Use: Reports: Coffee, Tea - Living Situation & Occupation Occupation: Employed ED ROS GENERAL - Review of Systems Review Of Systems: Comprehensive ROS is negative, except as noted in HPI. ED EXAM, GI/ABD - Physical Exam Exam: See Below (see dictation) Course - Vital Signs Last Recorded V/S: Last Vital Signs Temp 96.7 F L 08/18/19 16:35 Pulse 73 08/18/19 16:35 Resp 17 08/18/19 16:35 BP 133/60 08/18/19 16:35 Pulse Ox 100 08/18/19 16:35 - Orders/Labs/Meds Orders: Active Orders 24 hr Category Date Time Status Sodium Chloride 0.9% [Saline Flush] Med 08/18/19 16:40 Ordered 10 ml FLUSH ASDIRECTED PRN Sodium Chloride 0.9% [Saline Flush] Med 08/18/19 16:40 Ordered 2.5 ml FLUSH ASDIRECTED PRN Saline Lock Insert [OM.PC] Stat Oth 08/18/19 16:40 Ordered Medication Orders Sodium Chloride (Saline Flush) 10 ml FLUSH ASDIRECTED PRN PRN Reason: Keep Vein Open Sodium Chloride (Saline Flush) 2.5 ml FLUSH ASDIRECTED PRN PRN Reason: Keep Vein Open Labs: Laboratory Tests 08/18/19 08/18/19 08/18/19 Range/Units 16:44 16:44 17:04 WBC 8.26 (4.0-11.0) K/uL RBC 4.62 (4.30-5.90) M/uL Hgb 14.0 (12.0-16.0) g/dL Hct 41.3 (36.0-46.0) % MCV 89.4 (80.0-98.0) fL MCH 30.3 (27.0-32.0) pg MCHC 33.9 (31.0-37.0) g/dL RDW Std Deviation 41.3 (28.0-62.0) fl RDW Coeff of Cynthia 13 (11.0-15.0) % Plt Count 301 (150-400) K/uL MPV 10.40 (7.40-12.00) fL Neut % (Auto) 60.9 (48.0-80.0) % Lymph % (Auto) 31.6 (16.0-40.0) % [place] % (Auto) 7.0 (0.0-15.0) % Eos % (Auto) 0.4 (0.0-7.0) % Baso % (Auto) 0.1 (0.0-1.5) % Neut # (Auto) 5.0 (1.4-5.7) K/uL Lymph # (Auto) 2.6 H (0.6-2.4) K/uL [place] # (Auto) 0.6 (0.0-0.8) K/uL Eos # (Auto) 0.0 (0.0-0.7) K/uL Baso # (Auto) 0.0 (0.0-0.1) K/uL Nucleated RBC % 0.0 /100WBC Nucleated RBCs # 0 K/uL Sodium (136-145) mmol/L Potassium (3.5-5.1) mmol/L Chloride (98-107) mmol/L Carbon Dioxide (21.0-32.0) mmol/L BUN (7.0-18.0) mg/dL Creatinine (0.6-1.0) mg/dL Est Cr Clr Drug Dosing mL/min Estimated GFR (MDRD) ml/min Glucose (74-106) mg/dL Calcium (8.5-10.1) mg/dL Total Bilirubin (0.2-1.0) mg/dL AST (15-37) IU/L ALT (14-63) IU/L Alkaline Phosphatase (46-116) U/L Total Protein (6.4-8.2) g/dL Albumin (3.4-5.0) g/dL Globulin (2.6-4.0) g/dL Albumin/Globulin Ratio (0.9-1.6) Urine Color YELLOW Urine Appearance CLEAR Urine pH 6.5 (5.0-8.0) Ur Specific Fleischmanns >= 1.030 (1.001-1.035) Urine Protein NEGATIVE (NEGATIVE) mg/dL Urine Glucose (UA) NEGATIVE (NEGATIVE) mg/dL Urine Ketones NEGATIVE (NEGATIVE) mg/dL Urine Occult Blood NEGATIVE (NEGATIVE) Urine Nitrite NEGATIVE (NEGATIVE) Urine Bilirubin SMALL H (NEGATIVE) Urine Ictotest NEGATIVE Urine Urobilinogen 1.0 (<2.0) EU/dL Ur Leukocyte Esterase NEGATIVE (NEGATIVE) Urine HCG, Qual NEGATIVE (NEGATIVE) 08/18/19 Range/Units 17:04 WBC (4.0-11.0) K/uL RBC (4.30-5.90) M/uL Hgb (12.0-16.0) g/dL Hct (36.0-46.0) % MCV (80.0-98.0) fL MCH (27.0-32.0) pg MCHC (31.0-37.0) g/dL RDW Std Deviation (28.0-62.0) fl RDW Coeff of Cynthia (11.0-15.0) % Plt Count (150-400) K/uL MPV (7.40-12.00) fL Neut % (Auto) (48.0-80.0) % Lymph % (Auto) (16.0-40.0) % [place] % (Auto) (0.0-15.0) % Eos % (Auto) (0.0-7.0) % Baso % (Auto) (0.0-1.5) % Neut # (Auto) (1.4-5.7) K/uL Lymph # (Auto) (0.6-2.4) K/uL [place] # (Auto) (0.0-0.8) K/uL Eos # (Auto) (0.0-0.7) K/uL Baso # (Auto) (0.0-0.1) K/uL Nucleated RBC % /100WBC Nucleated RBCs # K/uL Sodium 137 (136-145) mmol/L Potassium 3.2 L (3.5-5.1) mmol/L Chloride 100 (98-107) mmol/L Carbon Dioxide 25.5 (21.0-32.0) mmol/L BUN 14 (7.0-18.0) mg/dL Creatinine 0.7 (0.6-1.0) mg/dL Est Cr Clr Drug Dosing 94.21 mL/min Estimated GFR (MDRD) > 60.0 ml/min Glucose 86 (74-106) mg/dL Calcium 9.0 (8.5-10.1) mg/dL Total Bilirubin 0.6 (0.2-1.0) mg/dL AST 18 (15-37) IU/L ALT 13 L (14-63) IU/L Alkaline Phosphatase 92 (46-116) U/L Total Protein 7.4 (6.4-8.2) g/dL Albumin 4.2 (3.4-5.0) g/dL Globulin 3.2 (2.6-4.0) g/dL Albumin/Globulin Ratio 1.3 (0.9-1.6) Urine Color Urine Appearance Urine pH (5.0-8.0) Ur Specific Fleischmanns (1.001-1.035) Urine Protein (NEGATIVE) mg/dL Urine Glucose (UA) (NEGATIVE) mg/dL Urine Ketones (NEGATIVE) mg/dL Urine Occult Blood (NEGATIVE) Urine Nitrite (NEGATIVE) Urine Bilirubin (NEGATIVE) Urine Ictotest Urine Urobilinogen (<2.0) EU/dL Ur Leukocyte Esterase (NEGATIVE) Urine HCG, Qual (NEGATIVE) Meds: Medications Generic Name Dose Route Start Last Admin Trade Name Freq PRN Reason Stop Dose Admin Sodium Chloride 10 ml 08/18/19 16:40 Saline Flush FLUSH ASDIRECTED PRN Keep Vein Open Sodium Chloride 2.5 ml 08/18/19 16:40 Saline Flush FLUSH ASDIRECTED PRN Keep Vein Open Discontinued Medications Generic Name Dose Route Start Last Admin Trade Name Freq PRN Reason Stop Dose Admin Sodium Chloride 1,000 mls @ 999 mls/hr 08/18/19 16:50 08/18/19 17:10 Normal Saline IV 08/18/19 17:50 999 mls/hr STAT ONE Administration Iopamidol 100 ml 08/18/19 18:34 08/18/19 18:34 Isovue-370 (76%) IVPUSH 08/18/19 18:35 100 ml ONETIME ONE Administration Ondansetron HCl 4 mg 08/18/19 16:50 08/18/19 17:10 Zofran IVPUSH 08/18/19 16:51 4 mg ONETIME ONE Administration Departure - Departure Time of Disposition: 18:54 Disposition: Home, Self-Care 01 Condition: Good Clinical Impression: Abdominal pain - Discharge Information Referrals: Tammy Perry, [facility] [Primary Care Provider] - Forms: ED Department Discharge Additional Instructions: The following information is given to patients seen in the emergency department who are being discharged to home. This information is to outline your options for follow-up care. We provide all patients seen in our emergency department with a follow-up referral. The need for follow-up, as well as the timing and circumstances, are variable depending upon the specifics of your emergency department visit. If you don't have a primary care physician on staff, we will provide you with a referral. We always advise you to contact your personal physician following an emergency department visit to inform them of the circumstance of the visit and for follow-up with them and/or the need for any referrals to a consulting specialist. The emergency department will also refer you to a specialist when appropriate. This referral assures that you have the opportunity for follow-up care with a specialist. All of these measure are taken in an effort to provide you with optimal care, which includes your follow-up. Under all circumstances we always encourage you to contact your private physician who remains a resource for coordinating your care. When calling for follow-up care, please make the office aware that this follow-up is from your recent emergency room visit. If for any reason you are refused follow-up, please contact the [facility] at and asked to speak to the emergency department charge nurse. [facility] [address] [place] [address] [place] [address] Alternate tylenol and motrin as needed Follow up with primary care provider Return to ED As needed as discussed Sepsis Event Note - Evaluation Sepsis Screening Result: No Definite Risk - Focused Exam Vital Signs: Vital Signs Temp Pulse Resp BP Pulse Ox 08/18/19 16:35 96.7 F L 73 17 133/60 100 Date Exam was Performed: 08/18/19 Time Exam was Performed: 18:55 - My Orders Last 24 Hours: My Active Orders 08/18/19 16:40 Sodium Chloride 0.9% [Saline Flush] 10 ml FLUSH ASDIRECTED PRN Sodium Chloride 0.9% [Saline Flush] 2.5 ml FLUSH ASDIRECTED PRN Saline Lock Insert [OM.PC] Stat - Assessment/Plan Last 24 Hours: My Active Orders 08/18/19 16:40 Sodium Chloride 0.9% [Saline Flush] 10 ml FLUSH ASDIRECTED PRN Sodium Chloride 0.9% [Saline Flush] 2.5 ml FLUSH ASDIRECTED PRN Saline Lock Insert [OM.PC] Stat
[2019-08-18 17:58] LABS: BLOOD UREA NITROGEN,BUN 14 mg/dL (7.0-18.0); CARBON DIOXIDE,CO2 25.5 mmol/L (21.0-32.0); CHLORIDE,CL 100 mmol/L (98-107); GLUCOSE RANDOM 86 mg/dL (74-106); POTASSIUM,K 3.2 mmol/L (3.5-5.1); SODIUM,NA 137 mmol/L (136-145)
[2019-08-18] MEDS ORDERED: Iopamidol 755 Mg/ML 100 ML Bottle IVPUSH ONE (18:34)
--- NOTE | 2019-08-18 18:46 | CT ---
CT abdomen and pelvis Technique: Multiple axial sections were obtained from above the dome of the diaphragm inferiorly through the pubic symphysis. Intravenous contrast was given. No oral contrast was utilized. Comparison: Prior CT abdomen and pelvis exam of 04/04/18. Findings: Visualized lung bases show nothing acute. Liver shows no focal parenchymal abnormality. Spleen appears within normal limits. Adrenal glands show no nodule. Small low density finding is noted within the right kidney measuring 5 mm which is indeterminate by Hounsfield unit measurements but most likely represents a small cyst. Nonobstructing calculus is noted within the mid left kidney.. Pancreas is within normal limits. Surgical clips seen from prior cholecystectomy. Aorta shows no aneurysm. No retroperitoneal adenopathy or mesenteric abnormalities are seen. Appendix is seen which is normal in size. No pelvic mass or adenopathy is seen. No free fluid or inflammatory change is appreciated. Mild increased stool is seen throughout the colon. Impression: 1. Mild increased stool throughout the colon. 2. Other findings as noted above. 3. Nothing acute is appreciated on CT study of the abdomen and pelvis. Diagnostic code #2 This report was dictated in MDT
== END 2019-08-18 19:16 | disposition home or self-care (01) ==
LOC: MW.ED 16:32
DX: R10.31 Right lower quadrant pain (principal); Z91.048 Other nonmedicinal substance allergy status; Z88.5 Allergy status to narcotic agent
CPT/HCPCS: 36415; 74177; 80053; 81003; 81025; 85025; 96374; 99284; J2405; J7030; Q9967; 99283

== ENCOUNTER 2021-03-04 16:38 | Emergency (ER) | payer BC ==
[2021-03-04] MEDS ORDERED: Lactated Ringers 1,000 ML IV ONE (17:13)
[2021-03-04] MEDS ORDERED: diphenhydrAMINE 50 MG/ML SDV IVPUSH ONE (17:13)
[2021-03-04] MEDS ORDERED: Metoclopramide 10 MG/2 ML SDV IVPUSH ONE (17:13)
[2021-03-04] MEDS ORDERED: Ketorolac 30 MG/ML SDV IVPUSH ONE (17:15)
[2021-03-04] MEDS ORDERED: Bupivacaine 0.5% 10 ML SDV INJECT ONE (17:47)
[2021-03-04] MEDS ORDERED: Acetaminophen/Butalbital/Caffeine 325-50-40 MG Tab PO ONE (17:48)
--- NOTE | 2021-03-04 17:49 | EDM.PDOC ---
ED HPI GENERAL MEDICAL PROBLEM - General Chief Complaint: Headache Stated Complaint: POSSIBLE SPINAL HEADACHE Time Seen by Provider: 03/04/21 17:43 Source of Information: Reports: Patient History Limitations: Reports: No Limitations - History of Present Illness INITIAL COMMENTS - FREE TEXT/NARRATIVE: 45-year-old female status post right total hip replacement 3 days ago at [facility] after receiving epidural anesthesia presents with headache. Headache started gradually the following day, progressive worsening, frontal aching sensation currently rated at 10/10. Headache is positional, worse when she is standing upright. Improves when laying flat. ROS: A 10-point review of systems, other than pertinent positives and negatives as stated per HPI, is otherwise negative Past medical history: No additional pertinent history Past Surgical history: No additional pertinent history Social history: No additional pertinent history Family history: No additional pertinent history PHYSICAL EXAM General: AOx4, GCS = 15, No distress HEENT: dry mucous membrane Neck: supple, no meningismus, no Kernig or Brudzinski Cardiac: S1S2 RRR Respiratory: CTAB, no crackles or rales, no wheezing Abdomen: Soft, nontender, no rebound or guarding, nondistended, no pulsatile mass. Back: nontender Musculoskeletal: NVI distally, no deformity Neuro: No focal deficits, CN 2 - 12 WNL. headache Pain Score (Numeric/FACES): 10 - Related Data Allergies Allergy/AdvReac Type Severity Reaction Status Date / Time adhesive tape Allergy Itching Verified 03/04/21 16:45 codeine Allergy Nausea and Verified 03/04/21 16:45 Vomiting Home Meds: Home Meds Metoprolol Succinate [Toprol XL] 50 mg PO BEDTIME 03/04/17 [History] Sertraline [Zoloft] 150 mg PO BEDTIME 03/04/17 [History] traZODone HCl [Trazodone HCl] 50 mg PO BEDTIME 05/25/19 [History] Acetaminophen/Caffeine [Excedrin Tension Headache Cplt] 1 each PO BID PRN #12 tablet 03/04/21 [Rx] Aspirin [Halfprin] 81 mg PO DAILY 03/04/21 [History] Meloxicam [Mobic] 03/04/21 [History] Past Medical History HEENT History: Reports: Other (See Below) Other HEENT History: wears glasses/contacts Cardiovascular History: Reports: Arrhythmia Other Cardiovascular History: has palpitations, PVC's- controlled with Metoprolol Respiratory History: Reports: None Gastrointestinal History: Reports: GERD Genitourinary History: Reports: Renal Calculus Other Genitourinary History: passed kidney stones 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: Musculoskeletal History: Reports: Other (See Below) Other Musculoskeletal History: hx hip implingement syndrome Neurological History: Reports: Other (See Below) Other Neuro History: hx of severe motion sickness Psychiatric History: Reports: Anxiety Endocrine/Metabolic History: Reports: None Hematologic History: Reports: None Immunologic History: Reports: None Oncologic (Cancer) History: Reports: None Dermatologic History: Reports: None - Infectious Disease History Infectious Disease History: Reports: Chicken Pox - Past Surgical History Head Surgeries/Procedures: Reports: None HEENT Surgical History: Reports: None Cardiovascular Surgical History: Reports: None Respiratory Surgical History: Reports: None GI Surgical History: Reports: Cholecystectomy Female Surgical History: Reports: Section, Hysterectomy, Lithotri psy/ESWL, Tubal Ligation Endocrine Surgical History: Reports: None Neurological Surgical History: Reports: C-Spine Other Neurological Surgeries/Procedures: has screws in neck from cervical fusion Musculoskeletal Surgical History: Reports: Arthroscopic Knee, Other (See Below) Other Musculoskeletal Surgeries/Procedures:: hx hip surgery for impingement syndrome (has anchors) Oncologic Surgical History: Reports: None Dermatological Surgical History: Reports: None Social & Family History - Family History Family Medical History: No Pertinent Family History - Tobacco Use Tobacco Use Status *Q: Never Tobacco User - Caffeine Use Caffeine Use: Reports: Coffee, Tea - Recreational Drug Use Recreational Drug Use: No - Living Situation & Occupation Occupation: Employed ED ROS GENERAL - Review of Systems Review Of Systems: See Below (see dictation) ED EXAM, GENERAL - Physical Exam Exam: See Below (see dictation) ED GENERAL MEDICAL PROCEDURES - Additional/Other Procedure(s) Other (Free Text) Procedure(s): SPHENOPALATINE GANGLION BLOCK: Indication: headache. Verbal consent was obtained. 3cc of 0.5% bupivacaine was placed into a swab and inserted into bilateral nares. This is left in place for approximately 20 minutes and patient was reassessed. Patient tolerated well with no complications observed. Course - Vital Signs Last Recorded V/S: Last Vital Signs Temp 97.3 F 03/04/21 16:50 Pulse 104 H 03/04/21 16:42 Resp 18 03/04/21 16:42 BP 137/69 03/04/21 16:42 Pulse Ox 96 03/04/21 16:42 - Orders/Labs/Meds Labs: Laboratory Tests 03/04/21 03/04/21 03/04/21 Range/Units 17:09 17:09 17:09 WBC 9.42 (4.0-11.0) K/uL RBC 3.33 L (4.30-5.90) M/uL Hgb 9.9 L (12.0-16.0) g/dL Hct 30.4 L (36.0-46.0) % MCV 91.3 (80.0-98.0) fL MCH 29.7 (27.0-32.0) pg MCHC 32.6 (31.0-37.0) g/dL RDW Std Deviation 43.5 (28.0-62.0) fl RDW Coeff of Cynthia 13 (11.0-15.0) % Plt Count 298 (150-400) K/uL MPV 10.50 (7.40-12.00) fL Neut % (Auto) 61.6 (48.0-80.0) % Lymph % (Auto) 24.6 (16.0-40.0) % Redwood % (Auto) 8.6 (0.0-15.0) % Eos % (Auto) 5.1 (0.0-7.0) % Baso % (Auto) 0.1 (0.0-1.5) % Neut # (Auto) 5.8 H (1.4-5.7) K/uL Lymph # (Auto) 2.3 (0.6-2.4) K/uL Redwood # (Auto) 0.8 (0.0-0.8) K/uL Eos # (Auto) 0.5 (0.0-0.7) K/uL Baso # (Auto) 0.0 (0.0-0.1) K/uL Nucleated RBC % 0.0 /100WBC Nucleated RBCs # 0 K/uL INR 1.03 APTT 30.1 (18.6-31.3) SEC Sodium 138 (136-145) mmol/L Potassium 3.4 L (3.5-5.1) mmol/L Chloride 100 (98-107) mmol/L Carbon Dioxide 29.1 (21.0-32.0) mmol/L BUN 11 (7.0-18.0) mg/dL Creatinine 0.6 (0.6-1.0) mg/dL Est Cr Clr Drug Dosing 107.67 mL/min Estimated GFR (MDRD) > 60.0 ml/min Glucose 99 (74-106) mg/dL Calcium 8.5 (8.5-10.1) mg/dL Total Bilirubin 0.4 (0.2-1.0) mg/dL AST 18 (15-37) IU/L ALT 17 (14-63) IU/L Alkaline Phosphatase 88 (46-116) U/L Total Protein 6.7 (6.4-8.2) g/dL Albumin 2.9 L (3.4-5.0) g/dL Globulin 3.8 (2.6-4.0) g/dL Albumin/Globulin Ratio 0.8 L (0.9-1.6) Meds: Medications Discontinued Medications Generic Name Dose Route Start Last Admin Trade Name Freq PRN Reason Stop Dose Admin Acetaminophen/Butalbital/Caffeine 1 tab 03/04/21 17:48 03/04/21 17:58 Acetaminophen/Butalbital/Caffeine 325-50-40 Mg Tab PO 03/04/21 17:49 1 tab ONETIME ONE Administration Bupivacaine HCl 10 ml 03/04/21 17:47 03/04/21 17:57 Bupivacaine 0.5% 10 Ml Sdv INJECT 03/04/21 17:48 10 ml ONETIME ONE Administration Diphenhydramine HCl 50 mg 03/04/21 17:13 03/04/21 17:21 Diphenhydramine 50 Mg/Ml Sdv IVPUSH 03/04/21 17:14 50 mg ONETIME ONE Administration Lactated Ringer's 1,000 mls @ 999 mls/hr 03/04/21 17:13 03/04/21 17:21 Ringers, Lactated IV 03/04/21 18:13 999 mls/hr .BOLUS ONE Administration Ketorolac Tromethamine 30 mg 03/04/21 17:15 03/04/21 17:21 Ketorolac 30 Mg/Ml Sdv IVPUSH 03/04/21 17:16 30 mg ONETIME ONE Administration Metoclopramide HCl 10 mg 03/04/21 17:13 03/04/21 17:21 Metoclopramide 10 Mg/2 Ml Sdv IVPUSH 03/04/21 17:14 10 mg ONETIME ONE Administration Midazolam HCl Confirm 03/04/21 19:28 Midazolam 1 Mg/Ml 2 Ml Sdv Administered 03/04/21 19:29 Dose 2 mg .ROUTE .STK-MED ONE Midazolam HCl 2 mg 03/04/21 19:46 Midazolam 1 Mg/Ml 2 Ml Sdv IVPUSH 03/04/21 19:47 ONETIME ONE - Re-Assessments/Exams Free Text/Narrative Re-Assessment/Exam: 03/04/21 18:38 I reexamined the patient, her headache is unchanged despite Reglan, Benadryl, Toradol, caffeine, sphenopalatine block, IV fluids, will discuss with anesthesia for blood patch. 03/04/21 18:[address] Zamora, on-call for anesthesia, he recommends calling [employer] FA[employer] WORKER in for blood patch; case discussed with Gerry Demarco, will come in for epidural blood patch. 03/04/21 19:59 Blood patch performed by [employer] WORKER, see his procedure note. 03/04/21 20:30 After prolonged observation in the ER, the patient improved and is currently stable for discharge. I performed a repeat exam and did not appreciate new abnormal findings. Patient exhibits normal vital signs. I advised the patient to return to the ER for reevaluation if symptoms worsened, including fever, worsening pain, or any other worrisome symptoms. I instructed the patient to follow up with their PCP within 2-3 days. MEDICAL DECISION MAKING: This patient was evaluated during the COVID-19 pandemic where resources and capacity might be affected. I reviewed the patients past medical records, lab and radiographic findings. I discussed the case with the patient. My differential diagnosis included: Departure - Departure Time of Disposition: 20:26 Disposition: Home, Self-Care 01 Condition: Good Clinical Impression: Post-dural puncture headache - Discharge Information *PRESCRIPTION DRUG MONITORING PROGRAM REVIEWED*: Not Applicable *COPY OF PRESCRIPTION DRUG MONITORING REPORT IN PATIENT ELENI: Not Applicable Prescriptions: Acetaminophen/Caffeine [Excedrin Tension Headache Cplt] 1 each PO BID PRN #12 tablet PRN Reason: Headache Instructions: Epidural Blood Patch for Spinal Headache, Care After, Spinal Headache Referrals: Ofelia Yu MD [Primary Care Provider] - 3 Days Forms: ED Department Discharge Additional Instructions: The need for follow-up, as well as the timing and circumstances, are variable depending upon the specifics of your emergency department visit. If you don't have a primary care physician on staff, we will provide you with a referral. We always advise you to contact your personal physician following an emergency department visit to inform them of the circumstance of the visit and for follow-up with them and/or the need for any referrals to a consulting specialist. The emergency department will also refer you to a specialist when appropriate. This referral assures that you have the opportunity for follow-up care with a specialist. All of these measure are taken in an effort to provide you with optimal care, which includes your follow-up. Under all circumstances we always encourage you to contact your private physician who remains a resource for coordinating your care. When calling for follow-up care, please make the office aware that this follow-up is from your recent emergency room visit. If for any reason you are refused follow-up, please contact the [facility] Emergency Department at and asked to speak to the emergency department charge nurse. If you do not have a primary care doctor, please follow up with the clinics below within 3-5 days. [facility] - Primary Care [address] [place] [address] [id number] [address] [place] [address] Sepsis Event Note (ED) - Evaluation Sepsis Screening Result: No Definite Risk - Focused Exam Vital Signs: Vital Signs Temp Pulse Resp BP Pulse Ox 03/04/21 16:50 97.3 F 03/04/21 16:42 104 H 18 137/69 96
[2021-03-04 17:50] LABS: BLOOD UREA NITROGEN,BUN 11 mg/dL (7.0-18.0); CARBON DIOXIDE,CO2 29.1 mmol/L (21.0-32.0); CHLORIDE,CL 100 mmol/L (98-107); GLUCOSE RANDOM 99 mg/dL (74-106); POTASSIUM,K 3.4 mmol/L (3.5-5.1); SODIUM,NA 138 mmol/L (136-145)
[2021-03-04] MEDS ORDERED: Midazolam 1 MG/ML 2 ML SDV ONE (19:28)
--- NOTE | 2021-03-04 19:45 | PCM.PREANE ---
Preanesthetic Assessment - Anesthesia/Transfusion/Family Hx Anesthesia History: Prior Anesthesia Without Reaction Other Type of Anesthesia Reaction Comment: "nausea" Family History of Anesthesia Reaction: No Transfusion History: No Prior Transfusion(s) Intubation History: Unknown - Review of Systems General: No Symptoms Pulmonary: No Symptoms Cardiovascular: No Symptoms Gastrointestinal: No Symptoms Neurological: Headache - Physical Assessment Vital Signs: Last Vital Signs Temp 36.3 C 03/04/21 16:50 Pulse 104 H 03/04/21 16:42 Resp 18 03/04/21 16:42 BP 137/69 03/04/21 16:42 Pulse Ox 96 03/04/21 16:42 Height: 1.65 m Weight: 83.915 kg ASA Class: 2 - Lab Values: Laboratory Last Values WBC 9.42 K/uL (4.0-11.0) 03/04/21 17:09 RBC 3.33 M/uL (4.30-5.90) L 03/04/21 17:09 Hgb 9.9 g/dL (12.0-16.0) L 03/04/21 17:09 Hct 30.4 % (36.0-46.0) L 03/04/21 17:09 MCV 91.3 fL (80.0-98.0) 03/04/21 17:09 MCH 29.7 pg (27.0-32.0) 03/04/21 17:09 MCHC 32.6 g/dL (31.0-37.0) 03/04/21 17:09 RDW Std Deviation 43.5 fl (28.0-62.0) 03/04/21 17:09 RDW Coeff of Cynthia 13 % (11.0-15.0) 03/04/21 17:09 Plt Count 298 K/uL (150-400) 03/04/21 17:09 MPV 10.50 fL (7.40-12.00) 03/04/21 17:09 Neut % (Auto) 61.6 % (48.0-80.0) 03/04/21 17:09 Lymph % (Auto) 24.6 % (16.0-40.0) 03/04/21 17:09 Gilchrist % (Auto) 8.6 % (0.0-15.0) 03/04/21 17:09 Eos % (Auto) 5.1 % (0.0-7.0) 03/04/21 17:09 Baso % (Auto) 0.1 % (0.0-1.5) 03/04/21 17:09 Neut # (Auto) 5.8 K/uL (1.4-5.7) H 03/04/21 17:09 Lymph # (Auto) 2.3 K/uL (0.6-2.4) 03/04/21 17:09 Gilchrist # (Auto) 0.8 K/uL (0.0-0.8) 03/04/21 17:09 Eos # (Auto) 0.5 K/uL (0.0-0.7) 03/04/21 17:09 Baso # (Auto) 0.0 K/uL (0.0-0.1) 03/04/21 17:09 Nucleated RBC % 0.0 /100WBC 03/04/21 17:09 Nucleated RBCs # 0 K/uL 03/04/21 17:09 INR 1.03 03/04/21 17:09 APTT 30.1 SEC (18.6-31.3) 03/04/21 17:09 Sodium 138 mmol/L (136-145) 03/04/21 17:09 Potassium 3.4 mmol/L (3.5-5.1) L 03/04/21 17:09 Chloride 100 mmol/L (98-107) 03/04/21 17:09 Carbon Dioxide 29.1 mmol/L (21.0-32.0) 03/04/21 17:09 BUN 11 mg/dL (7.0-18.0) 03/04/21 17:09 Creatinine 0.6 mg/dL (0.6-1.0) 03/04/21 17:09 Est Cr Clr Drug Dosing 107.67 mL/min 03/04/21 17:09 Estimated GFR (MDRD) > 60.0 ml/min 03/04/21 17:09 Glucose 99 mg/dL (74-106) 03/04/21 17:09 Calcium 8.5 mg/dL (8.5-10.1) 03/04/21 17:09 Total Bilirubin 0.4 mg/dL (0.2-1.0) 03/04/21 17:09 AST 18 IU/L (15-37) 03/04/21 17:09 ALT 17 IU/L (14-63) 03/04/21 17:09 Alkaline Phosphatase 88 U/L (46-116) 03/04/21 17:09 Total Protein 6.7 g/dL (6.4-8.2) 03/04/21 17:09 Albumin 2.9 g/dL (3.4-5.0) L 03/04/21 17:09 Globulin 3.8 g/dL (2.6-4.0) 03/04/21 17:09 Albumin/Globulin Ratio 0.8 (0.9-1.6) L 03/04/21 17:09 - Allergies Allergies/Adverse Reactions: Allergies Allergy/AdvReac Type Severity Reaction Status Date / Time adhesive tape Allergy Itching Verified 03/04/21 16:45 codeine Allergy Nausea and Verified 03/04/21 16:45 Vomiting - Acknowledgements Anesthesia Type Planned: Epidural Pt an Appropriate Candidate for the Planned Anesthesia: Yes Alternatives and Risks of Anesthesia Discussed w Pt/Guardian: Yes Pt/Guardian Understands and Agrees with Anesthesia Plan: Yes Additional Comments: PAtient is 3 days status post spinal anesthesia for R CONRAD in [place]. Symptoms are consistent with post dural puncture headache. Risks and method sof epidural blood patch were discssed and she wishes to proceed. Written informed consent obtained. 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: Musculoskeletal History: Reports: Other (See Below) Other Musculoskeletal History: hx hip implingement syndrome Neurological History: Reports: Other (See Below) Other Neuro History: hx of severe motion sickness Psychiatric History: Reports: Anxiety Endocrine/Metabolic History: Reports: None Hematologic History: Reports: None Immunologic History: Reports: None Oncologic (Cancer) History: Reports: None Dermatologic History: Reports: None - Infectious Disease History Infectious Disease History: Reports: Chicken Pox - Past Surgical History Head Surgeries/Procedures: Reports: None HEENT Surgical History: Reports: None Cardiovascular Surgical History: Reports: None Respiratory Surgical History: Reports: None GI Surgical History: Reports: Cholecystectomy Female Surgical History: Reports: Section, Hysterectomy, Lithotripsy/ESWL, Tubal Ligation Endocrine Surgical History: Reports: None Neurological Surgical History: Reports: C-Spine Other Neurological Surgeries/Procedures: has screws in neck from cervical fusion Musculoskeletal Surgical History: Reports: Arthroscopic Knee, Other (See Below) Other Musculoskeletal Surgeries/Procedures:: hx hip surgery for impingement syndrome (has anchors) Oncologic Surgical History: Reports: None Dermatological Surgical History: Reports: None - SUBSTANCE USE Tobacco Use Status *Q: Never Tobacco User Recreational Drug Use History: No - HOME MEDS Home Medications: Home Meds Metoprolol Succinate [Toprol XL] 50 mg PO BEDTIME 03/04/17 [History] Sertraline [Zoloft] 150 mg PO BEDTIME 03/04/17 [History] traZODone HCl [Trazodone HCl] 50 mg PO BEDTIME 05/25/19 [History] Aspirin [Halfprin] 81 mg PO DAILY 03/04/21 [History] Meloxicam [Mobic] 03/04/21 [History] - CURRENT (IN HOUSE) MEDS Current Meds: Current Medications Discontinued Medications Acetaminophen/Butalbital/Caffeine (Acetaminophen/Butalbital/Caffeine 325-50-40 Mg Tab) 1 tab PO ONETIME ONE Stop: 03/04/21 17:49 Last Admin: 03/04/21 17:58 Dose: 1 tab Documented by: Bupivacaine HCl (Bupivacaine 0.5% 10 Ml Sdv) 10 ml INJECT ONETIME ONE Stop: 03/04/21 17:48 Last Admin: 03/04/21 17:57 Dose: 10 ml Documented by: Diphenhydramine HCl (Diphenhydramine 50 Mg/Ml Sdv) 50 mg IVPUSH ONETIME ONE Stop: 03/04/21 17:14 Last Admin: 03/04/21 17:21 Dose: 50 mg Documented by: Lactated Ringer's (Ringers, Lactated) 1,000 mls @ 999 mls/hr IV .BOLUS ONE Stop: 03/04/21 18:13 Last Admin: 03/04/21 17:21 Dose: 999 mls/hr Documented by: Ketorolac Tromethamine (Ketorolac 30 Mg/Ml Sdv) 30 mg IVPUSH ONETIME ONE Stop: 03/04/21 17:16 Last Admin: 03/04/21 17:21 Dose: 30 mg Documented by: Metoclopramide HCl (Metoclopramide 10 Mg/2 Ml Sdv) 10 mg IVPUSH ONETIME ONE Stop: 03/04/21 17:14 Last Admin: 03/04/21 17:21 Dose: 10 mg Documented by: Midazolam HCl (Midazolam 1 Mg/Ml 2 Ml Sdv) Confirm Administered Dose 2 mg .ROUTE .STK-MED ONE Stop: 03/04/21 19:29
[2021-03-04] MEDS ORDERED: Midazolam 1 MG/ML 2 ML SDV IVPUSH ONE (19:46)
--- NOTE | 2021-03-04 19:55 | PCM.PRNOTE ---
- Free Text/Narrative Note: Anes note. Patient presents with frontal headache 3 days after spinal anesthesia for R CONRAD at [place]. Epidural Blood patch sterile technique. 2 mg versed given IV push at 192. Betadine scrub to lumbar area. Sterile fenestrated drape applied. Local 1% lido at epidural site. Epidural space easily achieved L3-L4 midline approach single attempt using BRIGITTE technique. The site was note to be 1 level above site of multiple needle amrsk from prior spial anesthetic. No pain or parasthesia when epidural space was entered. A prosthetics lab technician alberto 20cc of blood from left arm under sterile technique. This blood was slowly and carefully injected into the epidural space is 3-4 cc increments. Patient reports only mild pressure during this injection of blood. After injection complete, the needle was withdrawn and a band aid was placed at site. Patient not positioned completely flat for 45 minutes. Procedure tolerated well. Time with patient [id number] Gerry Demarco CRNA
== END 2021-03-04 20:49 | disposition home or self-care (01) ==
LOC: MW.ED 16:38
DX: G97.1 Other reaction to spinal and lumbar puncture (principal); Z91.048 Other nonmedicinal substance allergy status; Z88.5 Allergy status to narcotic agent; Z96.641 Presence of right artificial hip joint
CPT/HCPCS: 36415; 64505; 80053; 85025; 85610; 85730; 96374; 96375; 99284; A9270; J1200; J1885; J2250; J2765; J3490; J7120; 62273

== ENCOUNTER 2022-04-12 13:50 | Emergency (ER) | payer BC ==
[2022-04-12] MEDS ORDERED: Sodium Chloride 0.9% 2.5 ML Syringe FLUSH PRN (15:03)
[2022-04-12] MEDS ORDERED: diphenhydrAMINE 50 MG/ML SDV IVPUSH ONE ×2 (15:03→18:30)
[2022-04-12] MEDS ORDERED: methylPREDNISolone Sodium Succinate 125 MG/2 ML SDV IVPUSH ONE (15:03)
[2022-04-12] MEDS ORDERED: Famotidine 20 MG/2 ML SDV IVPUSH ONE ×2 (15:03→18:30)
[2022-04-12] MEDS ORDERED: Sodium Chloride 0.9% 1,000 ML IV ONE (15:03)
[2022-04-12] MEDS ORDERED: Sodium Chloride 0.9% 10 ML Syringe FLUSH PRN (15:03)
[2022-04-12] MEDS ORDERED: Ondansetron 4 MG/2 ML SDV IVPUSH ONE ×2 (15:03→17:56)
[2022-04-12 16:23] LABS: BLOOD UREA NITROGEN,BUN 14 mg/dL (7.0-18.0); CARBON DIOXIDE,CO2 21.3 mmol/L (21.0-32.0); CHLORIDE,CL 105 mmol/L (98-107); GLUCOSE RANDOM 131 mg/dL (74-106); LIPASE 79 U/L (73-393); POTASSIUM,K 3.3 mmol/L (3.5-5.1); SODIUM,NA 140 mmol/L (136-145)
[2022-04-12 16:35] LABS: ESTIMATED GFR 93 mL/min (>60)
[2022-04-12] MEDS ORDERED: Ondansetron 4 MG Tab.DIS PO ONE (18:30)
[2022-04-12] MEDS ORDERED: predniSONE 10 MG Tab PO ONE (18:30)
== END 2022-04-12 18:38 | disposition home or self-care (01) ==
LOC: MW.ED 13:50
DX: T78.40XA Allergy, unspecified, initial encounter (principal); B34.9 Viral infection, unspecified; R11.2 Nausea with vomiting, unspecified; R19.7 Diarrhea, unspecified; Z88.5 Allergy status to narcotic agent; Z91.040 Latex allergy status; Z79.82 Long term (current) use of aspirin
CPT/HCPCS: 36415; 80053; 83690; 84484; 85025; 96361; 96374; 96375; 96376; 99283; J1200; J2405; J2930; J3490; J7030; 99284

== ENCOUNTER 2022-07-10 11:22 | Day surgery (SDC) | payer BC ==
[~2022-07-10 11:22] MED LIST changes: +Sodium Chloride 0.9% 10 ML Syringe FLUSH PRN; +Sodium Chloride 0.9% 2.5 ML Syringe FLUSH PRN; +Sodium Chloride 0.9% 20 ML SDV IV PRN
[2022-07-10] MEDS ORDERED: Propofol 200 MG/20 ML SDV ONE (12:30)
[2022-07-10] MEDS ORDERED: Lidocaine 2% 5 ML SDV ONE (12:30)
== END 2022-07-10 13:32 | disposition home or self-care (01) ==
LOC: MW.SDS 11:22
PROVIDERS: ATTEND Surgery
DX: K29.50 Unspecified chronic gastritis without bleeding (principal); K20.90 Esophagitis, unspecified without bleeding; K25.9 Gastric ulcer, unspecified as acute or chronic, without hemorrhage or perforation; F41.9 Anxiety disorder, unspecified; Z88.5 Allergy status to narcotic agent; Z79.899 Other long term (current) drug therapy; Z90.49 Acquired absence of other specified parts of digestive tract
CPT/HCPCS: 43239; J2704; J7120; 00731; J3490

== ENCOUNTER 2024-10-31 18:07 | Emergency (ER) | payer BC ==
[2024-10-31 19:11] LABS: BASOPHILS ABSOLUTE AUTO 0.03 K/uL (0.00-0.20); BASOPHILS PERCENT AUTO 0.4 % (0.0-1.0); EOSINOPHILS ABSOLUTE AUTO 0.15 K/uL (0.00-0.45); EOSINOPHILS PERCENT AUTO 2.1 % (0.0-6.0); IMMATURE GRAN ABSOLUTE AUTO 0.01 K/uL (0.00-0.05); IMMATURE GRAN PERCENT AUTO 0.1 % (0.0-0.4); LYMPHOCYTES ABSOLUTE AUTO 2.57 K/uL (1.00-4.80); LYMPHOCYTES PERCENT AUTO 35.6 % (24.0-44.0); MEAN PLATELET VOLUME 10.0 fL (9.4-12.3); MONOCYTES ABSOLUTE AUTO 0.70 K/uL (0.00-0.80); MONOCYTES PERCENT AUTO 9.7 % (0.0-8.0); NEUTROPHILS ABSOLUTE AUTO 3.75 K/uL (1.80-7.70); NEUTROPHILS PERCENT AUTO 52.1 % (41.0-71.0); NRBC ABSOLUTE 0.00 K/uL (0.00-0.02); NRBC PERCENT 0.0 /100WBC (0.0-0.2); PLATELET COUNT,PLT 287 K/uL (150-400); RED BLOOD CELL COUNT 4.35 M/uL (4.10-5.30); WHITE BLOOD CELL COUNT,WBC 7.21 K/uL (3.9-11.3)
[2024-10-31] MEDS: Ondansetron 4 MG/2 ML SDV IVPUSH STA (19:20)
[2024-10-31 19:38] LABS: INR 1.01 (0.86-1.11); PTT,PARTIAL THROMBOPLSTIN TIME 27.1 SEC (23.9-30.7)
[2024-10-31 19:51] LABS: A/G RATIO 1.1 (0.9-1.6); ALANINE AMINOTRANSFERASE,ALT 17 IU/L (14-63); ASPARTATE AMNIOTRANSFERASE,AST 16 IU/L (15-37); BILIRUBIN TOTAL 0.2 mg/dL (0.2-1.0); BLOOD UREA NITROGEN,BUN 13 mg/dL (7.0-18.0); CARBON DIOXIDE,CO2 24.6 mmol/L (21.0-32.0); CHLORIDE,CL 104 mmol/L (98-107); CREATININE 0.8 mg/dL (0.6-1.0); EST CRCL DRUG DOSING (CG) 78.23 mL/min; GLUCOSE RANDOM 84 mg/dL (74-106); POTASSIUM,K 3.6 mmol/L (3.5-5.1); PROTEIN TOTAL,TP 7.4 g/dL (6.4-8.2); SODIUM,NA 137 mmol/L (136-145); TSH ULTRASENSITIVE 2.34 uIU/mL (0.36-3.74)
[2024-10-31 19:56] LABS: APPEARANCE,URINE CLEAR; GLUCOSE,URINE NEGATIVE (NEGATIVE); OCCULT BLOOD,URINE NEGATIVE (NEGATIVE)
[2024-10-31 19:57] LABS: ESTIMATED GFR 91 mL/min (>60); ETHANOL BLOOD MEDICAL < 3.0 mg/dL
[2024-10-31 20:19] LABS: AMPHETAMINES SCREEN, URINE NEGATIVE (CUTOFF=500); BUPRENORPHINE SCREEN,URINE NEGATIVE (CUTOFF=10); METHADONE SCREEN, URINE NEGATIVE (CUTOFF=200); METHAMPHETAMINES SCREEN, URINE NEGATIVE (CUTOFF=500); OXYCODONE SCREEN,URINE NEGATIVE (CUT0FF=100); PCP SCREEN,URINE NEGATIVE (CUTOFF=25); THC SCREEN,URINE 20 NG/ML NEGATIVE (CUTOFF=50)
[2024-10-31] MEDS: Ketorolac 30 MG/ML SDV IVPUSH ONE (20:32)
[2024-10-31] MEDS: Ondansetron 4 MG/2 ML SDV IVPUSH ONE (20:40)
== END 2024-10-31 21:43 | disposition home or self-care (01) ==
LOC: MW.ED 18:07
DX: R00.1 Bradycardia, unspecified (principal); E86.0 Dehydration; K21.9 Gastro-esophageal reflux disease without esophagitis; Z90.49 Acquired absence of other specified parts of digestive tract; Z88.5 Allergy status to narcotic agent; Z91.048 Other nonmedicinal substance allergy status; Z79.899 Other long term (current) drug therapy; Z75.3 Unavailability and inaccessibility of health-care facilities
CPT/HCPCS: 36415; 71046; 80053; 80305; 80307; 81003; 83690; 83735; 84443; 84484; 84703; 85025; 85610; 85730; 93005; 96361; 96374; 96375; 96376; 99285; A9270; J1885; J2405; J7030; 93010; 99284